=== PATIENT | female | born 1945 | race Caucasian/White ===

== ENCOUNTER 2018-07-12 18:29 | Emergency (ER) | payer OTHER, BC ==
[2018-07-12] MEDS ORDERED: NA CHLORIDE 0.9% 1,000 ML ONE ×2 (19:27→22:08)
[2018-07-12] MEDS ORDERED: ONDANSETRON 4 MG/2 ML VIAL ONE (19:27)
[2018-07-12 19:52] LABS: Absolute Lymphocytes (CBC) 1.2 K/uL (0.7-4.9); Absolute Monocytes 0.4 K/uL (0.1-1.3); Absolute Neutrophil 9.6 K/uL (1.8-8.0); Basophils % 0.3 % (0-1.3); Eosinophils % 0.3 % (0-4.4); Hematocrit 36.1 % (36.0-45.0); Lymphocytes % 10.7 % (15.3-44.8); MCV 87.2 fL (80-100); MPV 8.3 fL (7.6-11.3); Monocytes % 3.7 % (3.3-12.3); RBC Red Blood Cell Count 4.14 M/uL (3.86-4.86)
--- NOTE | 2018-07-12 19:57 | RAD REPORT ---
EXAM DESCRIPTION: RAD - Chest Single View - 07/12/2018 7:45 pm CLINICAL HISTORY: COUGH Chest pain. COMPARISON: Chest Pa And Lat (2 Views) dated 10/24/2016 FINDINGS: Portable technique limits examination quality. The lungs are grossly clear. The heart is upper limit normal in size. No displaced fractures. IMPRESSION: No acute intrathoracic process suspected.
[2018-07-12 19:59] LABS: Protime INR 1.05
[2018-07-12 20:15] LABS: ALT/SGPT 25 U/L (12-78); AST/SGOT 23 U/L (15-37); Albumin 3.7 g/dL (3.4-5.0); Alkaline Phosphatase 116 U/L (45-117); BUN Blood Urea Nitrogen 31 mg/dL (7-18); Bicarbonate 23 mmol/L (21-32); Bilirubin Direct 0.1 mg/dL (0-0.2); Bilirubin Total 0.3 mg/dL (0.2-1.0); Glucose Level 126 mg/dL (74-106); Lipase 178 U/L (73-393); Magnesium 2.2 mg/dL (1.8-2.4); NT PRO-BNP 142 pg/mL (<125); Protein, Total 7.8 g/dL (6.4-8.2); Sodium Level 141 mmol/L (136-145); Troponin (Emerg Dept Use Only) < 0.02 ng/mL (0.0-0.045)
[2018-07-12] MEDS ORDERED: MECLIZINE HCL 12.5 MG TAB ONE ×2 (21:01→22:27)
--- NOTE | 2018-07-12 21:04 | RAD REPORT ---
EXAM DESCRIPTION: - CP - 07/12/2018 8:53 pm CLINICAL HISTORY: DIZZINESS Syncope, CVA COMPARISON: None TECHNIQUE: Real-time sonographic evaluation of both carotid systems was performed. Doppler interroga tion was performed with waveform tracing bilaterally. FINDINGS: Normal high resistance waveforms are noted in both external carotid arteries. The common c arotid arteries and internal carotid arteries show normal low resistance waveforms. No significant plaque formation is seen. Peak systolic and end diastolic velocity values and the ICA/ CCA ratios are in the non-hemodynamically significant range. Antegrade flow seen in both vertebral arteries. IMPRESSION: No significant atherosclerotic changes noted. No evidence of a hemodynamically significant stenosis.
--- NOTE | 2018-07-12 21:10 | RAD REPORT ---
EXAM DESCRIPTION: CT - Head Brain Wo Cont - 07/12/2018 8:57 pm CLINICAL HISTORY: Dizziness, syncope Drowsiness COMPARISON: No comparisons TECHNIQUE: All CT scans are performed using dose optimization technique as appropriate and may inclu de automated exposure control or mA/KV adjustment according to patient size. FINDINGS: No intracranial hemorrhage, hydrocephalus or extra-axial fluid collection.No areas of brai n edema or evidence of midline shift. The paranasal sinuses and mastoids are clear. The calvarium is intact. IMPRESSION: No acute intracranial abnormality.
--- NOTE | 2018-07-12 21:53 | RAD REPORT ---
EXAM DESCRIPTION: CT - Stone Protocol - 07/12/2018 9:34 pm CLINICAL HISTORY: Flank pain. ABD PAIN COMPARISON: No comparisons TECHNIQUE: Axial images were obtained without oral or IV contrast. Lack of contrast limits solid org an and vascular assessment. The [id number] spans the entirety of the system partially obscuring uppermost abdomen and lung bases. Coronal reformatted images were obtained and reviewed. All CT scans are performed using dose optimization technique as appropriate and may include automated exposure control or mA/KV adjustment according to patient size. FINDINGS: The lower lung euceda are clear. Moderate hiatal hernia. Imaged portions of the liver and spleen show no suspicious findings on non-contrast imaging. The panc reas and adrenal glands are normal. No pathologic lymphadenopathy in the abdomen or pelvis. No urinary tract stones or obstructive uropathy. No bowel obstruction, free air, free fluid or abscess. Normal appendix noted.Sigmoid diverticulosis c vince without diverticulitis. Moderate lower lumbar degenerative changes. Small fat containing umbilical hernia. IMPRESSION: No urinary tract stones or obstructive uropathy. Sigmoid diverticulosis coli without diverticulitis.
--- NOTE | 2018-07-12 22:10 | ER ---
Nurse's Notes [facility] Name: Kalli Gipson Age: 72 yrs Sex: Female : 1945 Arrival Date: 07/12/2018 Time: 18:31 Bed 7 Private MD: Diagnosis: Vomiting;Dizziness and giddiness;Vertiginous syndromes in diseases classified elsewhere, unspecified ear;Unspecified kidney failure Presentation: 07/12 18:32 Presenting complaint: EMS states: Dizziness, nausea and vomiting x 2 hours. Hx of jl7 vertigo, took vertigo medication but threw it right back up. Transition of care: patient was not received from another setting of care. Onset of symptoms was July 12, 2018 at 16:30. Risk Assessment: Do you want to hurt yourself or someone else? Patient reports no desire to harm self or others. Initial Sepsis Screen: Does the patient meet any 2 criteria? No. Patient's initial sepsis screen is negative. Does the patient have a suspected source of infection? No. Patient's initial sepsis screen is negative. Care prior to arrival: Medication(s) given: 300 cc of Lactated Ringers IV initiated. 20 GA, in the left forearm. 18:32 Method Of Arrival: EMS: [facility] jl7 18:32 Acuity: JOSUE 3 jl7 Triage Assessment: 18:35 General: Appears uncomfortable, Behavior is calm, cooperative, appropriate for age. jl7 Pain: Denies pain. EENT: No signs and/or symptoms were reported regarding the EENT system. Neuro: Level of Consciousness is awake, alert, obeys commands, Oriented to person, place, time, situation, Speech is normal, Facial symmetry appears normal, Reports dizziness, since 1630. Cardiovascular: Patient's skin is warm and dry. Respiratory: Airway is patent Respiratory effort is even, unlabored, Respiratory pattern is regular, symmetrical. GI: Abdomen is round non-distended, Reports nausea, vomiting, since 1630. : No signs and/or symptoms were reported regarding the genitourinary system. Derm: Skin is pink, warm \\T\\ dry. Musculoskeletal: No signs and/or symptoms reported regarding the musculoskeletal system. Historical: - Allergies: 18:35 No Known Allergies; jl7 - PMHx: 18:35 Hypertension; vertigo; jl7 - Immunization history:: Adult Immunizations not up to date. - Social history:: Smoking status: Patient/guardian denies using tobacco. - Ebola Screening: : No symptoms or risks identified at this time. Screenin:37 Abuse screen: Denies threats or abuse. Denies injuries from another. Nutritional jl7 screening: No deficits noted. Tuberculosis screening: No symptoms or risk factors identified. Fall Risk IV access (20 points). Total Cantu Fall Scale indicates No Risk (0-24 pts). Assessment: 18:37 General: See triage assessment. jl7 19:16 Neuro: Level of Consciousness is awake, alert, obeys commands, Reports dizziness. lp1 Cardiovascular: Patient's skin is warm and dry. Respiratory: Respiratory effort is even, unlabored. GI: Pt is actively vomiting clear fluid. : No signs and/or symptoms were reported regarding the genitourinary system. Derm: Skin is pink, warm \\T\\ dry. 21:04 Reassessment: PT RETURNED FROM U/S AND CT. bp 22:12 Reassessment: Patient denies any nausea at this time; States "I still feel dizzy lp1 anytime I move" Patient states feeling better. 22:13 Reassessment: Patient is alert, oriented x 3, equal unlabored respirations, skin lp1 warm/dry/pink. General: Appears in no apparent distress. 22:45 Reassessment: Dr. Holcomb at bedside to discuss results with patient. lp1 Vital Signs: 18:35 BP 171 / 85; Pulse 65; Resp 16 S; Temp 97.5(O); Pulse Ox 100% on R/A; Weight 70.31 kg jl7 (R); Pain 0/10; 19:20 BP 154 / 91; Pulse 73; Resp 16; Pulse Ox 98% on R/A; lp1 21:04 BP 164 / 94; Pulse 74; Resp 16; Pulse Ox 98% ; bp 22:00 BP 142 / 81; Pulse 65; Resp 16; Pulse Ox 97% on R/A; lp1 ED Course: 18:31 Patient arrived in ED. jl7 18:34 Triage completed. jl7 18:35 Arm band placed on right wrist. jl7 18:37 Patient has correct armband on for positive identification. Bed in low position. Call [facility] light in reach. Side rails up X 1. Pulse ox on. NIBP on. Warm blanket given. 18:37 Maintain EMS IV. Dressing intact. Good blood return noted. Site clean \\T\\ dry. Gauge \\T\\ jl 7 site: 20 left FA. 18:54 EKG done, by ED staff, reviewed by Keon Gagnon MD. dh3 19:04 Julianne Amaro, LEANDRA is Primary Nurse. lp1 19:05 Latrell Holcomb MD is Attending Physician. lisette 19:43 X-ray completed. Portable x-ray completed in exam room. Patient tolerated procedure ag1 well. 19:45 XRAY Chest (1 view) In Process Unspecified. EDMS 20:53 US Carotid Artery Bilateral In Process Unspecified. EDMS 20:[address] via wheelchair. cy 20:57 CT completed. Patient tolerated procedure well. Patient moved back from CT. nj 20:57 CT Head Brain wo Cont In Process Unspecified. EDMS 21:34 CT Stone Protocol In Process Unspecified. EDMS 22:10 Elvia Carrasco MD is Referral Physician. lisette 22:14 No provider procedures requiring assistance completed. lp1 23:12 IV discontinued, No redness/swelling at site. Pressure dressing applied. lp1 Administered Medications: 19:28 Drug: NS 0.9% 1000 ml Route: IV; Rate: 1 bolus; Site: left forearm; lp1 20:30 Follow up: IV Status: Completed infusion; IV Intake: 1000ml lp1 19:29 Drug: Zofran 4 mg Route: IVP; Site: left forearm; lp1 20:30 Follow up: Response: Nausea is decreased lp1 21:04 Drug: Meclizine 25 mg Route: PO; bp 21:30 Follow up: Response: No adverse reaction lp1 22:11 Drug: NS 0.9% 1000 ml Route: IV; Rate: 125 ml/hr; Site: left forearm; lp1 22:47 Follow up: IV Status: IV converted to saline lock lp1 22:29 Drug: Meclizine 25 mg Route: PO; lp1 22:48 Follow up: Response: Medication administered at discharge. lp1 Intake: 20:30 IV: 1000ml; Total: 1000ml. lp1 Outcome: 22:10 Discharge ordered by . lisette 23:00 Discharged to home via wheelchair, with friend. lp1 23:00 Condition: good 23:00 Discharge instructions given to patient, Instructed on discharge instructions, follow up and referral plans. medication usage, Demonstrated understanding of instructions, follow-up care, medications, Prescriptions given X 2. 23:00 Patient left the ED. lp1 Signatures: Dispatcher [employer] EDMS Latrell Holcomb MD MD cha Pena, Laura, RN RN lp1 Ashley Red ag1 Simba Bojorquez Jahala, RN RN 7 Sangeeta Sofia 3 Cheko Wallis RN RN [employer]: (The following items were deleted from the chart) 22:13 22:12 Reassessment: Patient denies any nausea at this time; States "I still feel dizzy lp1 anytime I move" Patient states feeling better. lp1 23:13 23:13 Patient left the ED. lp1 lp1
--- NOTE | 2018-07-12 22:10 | EDPHYS ---
Physician Documentation [facility] Name: Kalli Gipson Age: 72 yrs Sex: Female : 1945 Arrival Date: 07/12/2018 Time: 18:31 Bed 7 Private MD: ED Physician Latrell Holcomb HPI: 07/12 19:36 This 72 yrs old Female presents to ER via EMS with complaints of Vertigo, lisette Nausea/Vomiting. 19:36 The patient presents to the emergency department with nausea, vomiting, that is lisette intermittent. Onset: The symptoms/episode began/occurred just prior to arrival, today. Possible causes: unknown. The symptoms are aggravated by movement, The symptoms are alleviated by remaining still. Associated signs and symptoms: The patient has no apparent associated signs or symptoms. Severity of symptoms: At their worst the symptoms were mild in the emergency department the symptoms are unchanged. The patient has not experienced similar symptoms in the past. Historical: - Allergies: 18:35 No Known Allergies; jl7 - PMHx: 18:35 Hypertension; vertigo; jl7 - Immunization history:: Adult Immunizations not up to date. - Social history:: Smoking status: Patient/guardian denies using tobacco. - Ebola Screening: : No symptoms or risks identified at this time. ROS: 19:37 Constitutional: Negative for fever, chills, and weight loss, Eyes: Negative for injury, lisette pain, redness, and discharge, ENT: Negative for injury, pain, and discharge, Neck: Negative for injury, pain, and swelling, Cardiovascular: Negative for chest pain, palpitations, and edema, Respiratory: Negative for shortness of breath, cough, wheezing, and pleuritic chest pain, Abdomen/GI: Negative for abdominal pain, nausea, vomiting, diarrhea, and constipation, Back: Negative for injury and pain, : Negative for injury, bleeding, discharge, and swelling, MS/Extremity: Negative for injury and deformity, Skin: Negative for injury, rash, and discoloration, Psych: Negative for depression, anxiety, suicide ideation, homicidal ideation, and hallucinations, Allergy/Immunology: Negative for hives, rash, and allergies, Endocrine: Negative for neck swelling, polydipsia, polyuria, polyphagia, and marked weight changes, Hematologic/Lymphatic: Negative for swollen nodes, abnormal bleeding, and unusual bruising. 19:37 Neuro: Positive for dizziness. Exam: 19:37 Constitutional: This is a well developed, well nourished patient who is awake, alert, lisette and in no acute distress. Head/Face: Normocephalic, atraumatic. Eyes: Pupils equal round and reactive to light, extra-ocular motions intact. Lids and lashes normal. Conjunctiva and sclera are non-icteric and not injected. Cornea within normal limits. Periorbital areas with no swelling, redness, or edema. ENT: Nares patent. No nasal discharge, no septal abnormalities noted. Tympanic membranes are normal and external auditory canals are clear. Oropharynx with no redness, swelling, or masses, exudates, or evidence of obstruction, uvula midline. Mucous membranes moist. Neck: Trachea midline, no thyromegaly or masses palpated, and no cervical lymphadenopathy. Supple, full range of motion without nuchal rigidity, or vertebral point tenderness. No Meningismus. Chest/axilla: Normal chest wall appearance and motion. Nontender with no deformity. No lesions are appreciated. Cardiovascular: Regular rate and rhythm with a normal S1 and S2. No gallops, murmurs, or rubs. Normal PMI, no JVD. No pulse deficits. Respiratory: Lungs have equal breath sounds bilaterally, clear to auscultation and percussion. No rales, rhonchi or wheezes noted. No increased work of breathing, no retractions or nasal flaring. Abdomen/GI: Soft, non-tender, with normal bowel sounds. No distension or tympany. No guarding or rebound. No evidence of tenderness throughout. Back: No spinal tenderness. No costovertebral tenderness. Full range of motion. Female : Normal external genitalia. Skin: Warm, dry with normal turgor. Normal color with no rashes, no lesions, and no evidence of cellulitis. MS/ Extremity: Pulses equal, no cyanosis. Neurovascular intact. Full, normal range of motion. Neuro: Awake and alert, GCS 15, oriented to person, place, time, and situation. Cranial nerves II-XII grossly intact. Motor strength 5/5 in all extremities. Sensory grossly intact. Cerebellar exam normal. Normal gait. Psych: Awake, alert, with orientation to person, place and time. Behavior, mood, and affect are within normal limits. Vital Signs: 18:35 BP 171 / 85; Pulse 65; Resp 16 S; Temp 97.5(O); Pulse Ox 100% on R/A; Weight 70.31 kg jl7 (R); Pain 0/10; 19:20 BP 154 / 91; Pulse 73; Resp 16; Pulse Ox 98% on R/A; lp1 21:04 BP 164 / 94; Pulse 74; Resp 16; Pulse Ox 98% ; bp 22:00 BP 142 / 81; Pulse 65; Resp 16; Pulse Ox 97% on R/A; lp1 MDM: 19:05 Patient medically screened. [facility] 19:37 Data reviewed: vital signs, nurses notes, lab test result(s), EKG, radiologic studies, [facility] CT scan, doppler, plain films. 07/12 19:17 Order name: Basic Metabolic Panel; Complete Time: 21:08 [facility] 07/12 19:17 Order name: CBC with Diff; Complete Time: 21:08 [facility] 07/12 19:17 Order name: LFT's; Complete Time: 21:08 [facility] 07/12 19:17 Order name: Magnesium; Complete Time: 21:08 [facility] 07/12 19:17 Order name: NT PRO-BNP; Complete Time: 21:08 [facility] 07/12 19:17 Order name: PT-INR; Complete Time: 21:08 [facility] 07/12 19:17 Order name: Troponin (emerg Dept Use Only); Complete Time: 21:08 [facility] 07/12 19:17 Order name: XRAY Chest (1 view); Complete Time: 21:08 [facility] 07/12 19:17 Order name: Lipase; Complete Time: 21:08 [facility] 07/12 19:36 Order name: CT Head Brain wo Cont; Complete Time: 21:13 [facility] 07/12 19:36 Order name: US Carotid Artery Bilateral; Complete Time: 21:08 [facility] 07/12 21:13 Order name: CT Stone Protocol; Complete Time: 22:09 [facility] 07/12 19:17 Order name: EKG; Complete Time: 19:38 [facility] 07/12 19:17 Order name: Cardiac monitoring; Complete Time: 19:19 [facility] 07/12 19:17 Order name: EKG - Nurse/Tech; Complete Time: 19:19 [facility] 07/12 19:17 Order name: IV Saline Lock; Complete Time: 19: [facility] 07/12 19:17 Order name: Labs collected and sent; Complete Time: 19: [facility] 07/12 19:17 Order name: O2 Per Protocol; Complete Time: [facility] 07/12 19:17 Order name: O2 Sat Monitoring; Complete Time: : [facility] Administered Medications: 19:28 Drug: NS 0.9% 1000 ml Route: IV; Rate: 1 bolus; Site: left forearm; lp1 20:30 Follow up: IV Status: Completed infusion; IV Intake: 1000ml lp1 19:29 Drug: Zofran 4 mg Route: IVP; Site: left forearm; lp1 20:30 Follow up: Response: Nausea is decreased lp1 21:04 Drug: Meclizine 25 mg Route: PO; bp 21:30 Follow up: Response: No adverse reaction lp1 22:11 Drug: NS 0.9% 1000 ml Route: IV; Rate: 125 ml/hr; Site: left forearm; lp1 22:47 Follow up: IV Status: IV converted to saline lock lp1 22:29 Drug: Meclizine 25 mg Route: PO; lp1 22:48 Follow up: Response: Medication administered at discharge. lp1 Disposition: 07/12/18 22:10 Discharged to Home. Impression: Vomiting, Dizziness and giddiness, Vertiginous syndromes in diseases classified elsewhere, unspecified ear, Unspecified kidney failure. - Condition is Stable. - Discharge Instructions: Dizziness, Nausea and Vomiting, Adult, Nausea and Vomiting, Adult, [id number], Vertigo, [id number], Aspirin and Your Heart, Chronic Kidney Disease, Adult, [id number]-[id number], Dizziness, [id number]-[id number]. - Prescriptions for Meclizine 25 mg Oral Tablet - take 1 tablet by ORAL route every 8 hours As needed; 30 tablet. Zofran 4 mg Oral Tablet - take 1 tablet by ORAL route every 12 hours As needed; 20 tablet. - Medication Reconciliation Form, Thank You Letter, Antibiotic Education, Prescription Opioid Use form. - Follow up: Private Physician; When: 2 - 3 days; Reason: Recheck today's complaints, Continuance of care, Re-evaluation by your physician. Follow up: Elvia Carrasco; When: 2 - 3 days; Reason: Recheck today's complaints, Re-evaluation by your physician. - Problem is new. - Symptoms have improved. Signatures: Dispatcher [employer] EDMS Latrell Holcomb MD MD cha Pena, Laura, RN RN lp1 Sylvia Casey, RN RN jl7 Cheko Wallis RN RN bp Corrections: (The following items were deleted from the chart) 23:13 22:10 07/12/2018 22:10 Discharged to Home. Impression: Vomiting; Dizziness and lp1 giddiness; Vertiginous syndromes in diseases classified elsewhere, unspecified ear; Unspecified kidney failure. Condition is Stable. Discharge Instructions: Dizziness, Nausea and Vomiting, Adult, Nausea and Vomiting, Adult, Navq-[id number], Vertigo, [id number], Aspirin and Your Heart, Dizziness, Dplv-[id number]-Jvht, Chronic Kidney Disease, Adult, Ypqc-[id number]. Prescriptions for Meclizine 25 mg Oral Tablet - take 1 tablet by ORAL route every 8 hours As needed; 30 tablet, Zofran 4 mg Oral Tablet - take 1 tablet by ORAL route every 12 hours As needed; 20 tablet. and Forms are Medication Reconciliation Form, Thank You Letter, Antibiotic Education, Prescription Opioid Use. Follow up: Private Physician; When: 2 - 3 days; Reason: Recheck today's complaints, Continuance of care, Re-evaluation by your physician. Follow up: Elvia Carrasco; When: 2 - 3 days; Reason: Recheck today's complaints, Re-evaluation by your physician. Problem is new. Symptoms have improved. lisette
[2018-07-12 23:54] VITALS: TEMP 97.5
[2018-07-12 23:57] VITALS: BP 142/81; O2SAT 97
== END 2018-07-12 23:13 | disposition home or self-care (01) ==
LOC: ER 18:29
DX: R42 Dizziness and giddiness (principal); H82.9 Vertiginous syndromes in diseases classified elsewhere, unspecified ear; N19 Unspecified kidney failure; I10 Essential (primary) hypertension
CPT/HCPCS: 36415; 70450; 71045; 74176; 76377; 80048; 80076; 83690; 83735; 83880; 84484; 85025; 85610; 93880; J2405; J7030 ×2; 93005

== ENCOUNTER 2023-01-09 11:55 | Emergency (ER) | payer OTHER, BC ==
--- OUTSIDE RECORDS SUMMARY | 2023-01-09 11:59 | XMS REPORT | Continuity of Care Document ---
:1945 Author Organization [facility] Address [address] [place] [address] [place] [id number] Care Team Providers Name Role Phone Perla Arceo Attending Clinician Unavailable Donald Martin Attending Clinician Unavailable Greg Hendrickson Attending Clinician Unavailable Wei Vail Attending Clinician Unavailable PERLA ARCEO Admitting Clinician Unavailable Donald Martin Admitting Clinician Unavailable Physician, No Primary or Family Admitting Clinician Unavaila ble Payers Payer Name Policy Type Policy Number Effective Date Expiration Date S ource MEDICARE MB [id number] 2010 [facility] NOVITAS 00:00:00 - [facility] Blue Cross Blue C1 [id number] 2021 [facility] 0 00:00:00 - [facility] Problems Condition Condition Condition Status Onset Resolution Last Treating Co mments Source Name Details Category Date Date Treatment Clinician Date [id number] Age-relate Problem Com mon d [facility] osteoporos - [facility] is without [facility] pathologic Medica l [facility] fracture Gastroesop Gastroesop Problem C ommon hageal hageal [facility] reflux reflux - [facility] disease disease, esophagiti [facility] s presence Medica l not Center specified [id number] Essential Problem Comm on (primary) [facility] hypertensi - [facility] on [facility] [id number] Cervical Problem Common osteophyte [facility] - [facility] [id number] Neck pain Problem Comm on [facility] - [facility] [id number] Osteoarthr Problem Co mmon 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 - [facility] knees, St unspecie [facility] osteoarthr Center itis type [id number] 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, - [facility] unspecifie [facility] [id number] +5th digit Problem Co mmon eff [facility] 07/24/20*St - [facility] [address] [facility] kidney Medical disease Center [id number] Asymptomat Problem Co mmon ic [facility] postsurgic - [facility] al [facility] Allergies, Adverse Reactions, Alerts Allergy Allergy Status Severity Reaction(s) Onset Inactive Treating Comm ents Source Name Type Date Date Clinician Sulfa DA Active [place] [facility] (Sulf[place] 7- [place] mide 00:00: Orthope Antibiot 00 dic ics) [facility] [place] [facility] ([place] 7 [place] 00:[place]: Orthope Antibiot 00 dic ics) [facility] [place] [facility] (Sulfona 4 [place] [facility] 00:00: Green Antibiot 00 Regiona ics) [facility] Sulfa DA Active [place] [facility] (Sulfona 4- Clear mide 00:00: Green Antibiot 00 Regiona ics) [facility] lisinopr lisinopr Active unlisted Comm on il il [facility] - [facility] sulfamet sulfamet Active itching Commo n hoxazole hoxazole Spirit / / - [facility] trimetho trimetho [facility] Social History Social Habit Start Date Stop Date Quantity Comments Source History of Tobacco Use Co mmon [facility] Sex Assigned At Com [facility] Smoking Status Start Date Stop Date Source Never Smoker Common [facility] Medications Ordered Filled Start Stop Current Ordering Indication Dosage Frequency Signature Comments Components Source Medication Medication Date Date Medication? Clinician (SIG) Name Name Alendronate Alendronate 2022- No Alendronat Sodium 70 Sodium 70 03-25 e Sodium MG MG 00:00: 00:00 70 MG 00 :00 Alendronate Alendronate 2022- No Alendronat Sodium 70 Sodium 70 03-25 e Sodium MG MG 00:00: 00:00 70 MG 00 :00 Alendronate Alendronate 2022- No Alendronat Sodium 70 Sodium 70 03-25 e Sodium MG MG 00:00: 00:00 70 MG 00 :00 Alendronate Alendronate 2022- No Alendronat Sodium 70 Sodium 70 03-25 e Sodium MG MG 00:00: 00:00 70 MG 00 :00 Alendronate Alendronate 2022- No Alendronat Sodium 70 Sodium 70 03-25 e Sodium MG MG 00:00: 00:00 70 MG 00 :00 Alendronate Alendronate 2022- No Alendronat Sodium 70 Sodium 70 03-25 e Sodium MG MG 00:00: 00:00 70 MG 00 :00 Atorvastati Atorvastati No 1{table QD Atorvastat n Calcium n Calcium 9-27 t} in Calcium 20 MG 20 MG 00:00: 20 MG 00 Atorvastati Atorvastati No 1{table QD Atorvastat n Calcium n Calcium 9-27 t} in Calcium 20 MG 20 MG 00:00: 20 MG 00 Atorvastati Atorvastati No 1{table QD Atorvastat n Calcium n Calcium 9-27 t} in Calcium 20 MG 20 MG 00:00: 20 MG 00 Atorvastati Atorvastati No 1{table QD Atorvastat n Calcium n Calcium 9-27 t} in Calcium 20 MG 20 MG 00:00: 20 MG 00 Atorvastati Atorvastati No 1{table QD Atorvastat n Calcium n Calcium 9-27 t} in Calcium 20 MG 20 MG 00:00: 20 MG Atorvastati Atorvastati No 1{table QD Atorvastat n Calcium n Calcium 9-27 t} in Calcium 20 MG 20 MG 00:00: 20 MG Atorvastati Atorvastati No 1{table QD Atorvastat n Calcium n Calcium 9-27 t} in Calcium 20 MG 20 MG 00:00: 20 MG Atorvastati Atorvastati No 1{table QD Atorvastat n Calcium n Calcium 9-27 t} in Calcium 20 MG 20 MG 00:00: 20 MG Atorvastati Atorvastati No 1{table QD Atorvastat n Calcium n Calcium 9-27 t} in Calcium 20 MG 20 MG 00:00: 20 MG Atorvastati Atorvastati No 1{table QD Atorvastat n Calcium n Calcium 9-27 t} in Calcium 20 MG 20 MG 00:00: 20 MG 00 Hyalgan 20 Hyalgan 20 2020-0 No 2mL C ommon mg mg 11-15 Spirit 00:00: - [facility] Hyalgan 20 Hyalgan 20 2020-0 No 2mL C ommon mg mg 11-15 [facility] 00:00: - [facility] Hyalgan 20 Hyalgan 20 2020-0 No 2mL C ommon mg mg 11-15 [facility] 00:00: - [facility] Hyalgan 20 Hyalgan 20 2020-0 No 2mL C ommon mg mg 11-15 [facility] 00:00: - [facility] Hyalgan 20 Hyalgan 20 2020-0 No 2mL C ommon mg mg 11-15 [facility] 00:00: - [facility] Hyalgan 20 Hyalgan 20 2020-0 No 2mL C ommon mg mg 11-15 [facility] 00:00: - [facility] Hyalgan 20 Hyalgan 20 2020-0 No 2mL C ommon mg mg 11-15 [facility] 00:00: - [facility] Hyalgan 20 Hyalgan 20 2020-0 No 2mL C ommon mg mg 11-15 [facility] 00:00: - [facility] Hyalgan 20 Hyalgan 20 2020-0 No 2mL C ommon mg mg 11-15 [facility] 00:00: - [facility] Hyalgan 20 Hyalgan 20 2020-0 No 2mL C ommon mg mg 11-15 [facility] 00:00: - [facility] Hyalgan 20 Hyalgan 20 2020-0 No 2mL C ommon mg mg 11-15 [facility] 00:00: - [facility] Hyalgan 20 Hyalgan 20 2020-0 No 2mL C ommon mg mg 11-15 [facility] 00:00: - [facility] Hyalgan 20 Hyalgan 20 2020-0 No 2mL C ommon mg mg 11-15 [facility] 00:00: - [facility] Hyalgan 20 Hyalgan 20 2020-0 No 2mL C ommon mg mg 11-15 [facility] 00:00: - [facility] Hyalgan 20 Hyalgan 20 2020-0 No 2mL C ommon mg mg 11-15 [facility] 00:00: - [facility] Hyalgan 20 Hyalgan 20 2020-0 No 2mL C ommon mg mg 11-15 [facility] 00:00: - [facility] Hyalgan 20 Hyalgan 20 2020-0 No 2mL C ommon mg mg 11-08 [facility] 00:00: - [facility] Hyalgan 20 Hyalgan 20 2020-0 No 2mg C ommon mg mg 11-08 [facility] 00:00: - [facility] Hyalgan 20 Hyalgan 20 2020-0 No 2mL C ommon mg mg 11-08 [facility] 00:00: - [facility] Hyalgan 20 Hyalgan 20 2020-0 No 2mg C ommon mg mg 11-08 [facility] 00:00: - [facility] Hyalgan 20 Hyalgan 20 2020-0 No 2mL C ommon mg mg 11-08 [facility] 00:00: - [facility] Hyalgan 20 Hyalgan 20 2020-0 No 2mg C ommon mg mg 16 [facility] 00:00: - [facility] Hyalgan 20 Hyalgan 20 2020-0 No 2mL C ommon mg mg 11-08 [facility] 00:00: - [facility] Hyalgan 20 Hyalgan 20 2020-0 No 2mg C ommon mg mg 11-08 [facility] 00:00: - [facility] Hyalgan 20 Hyalgan 20 2020-0 No 2mL C ommon mg mg 11-08 [facility] 00:00: - [facility] Hyalgan 20 Hyalgan 20 2020-0 No 2mg C ommon mg mg 11-08 [facility] 00:00: - [facility] Hyalgan 20 Hyalgan 20 2020-0 No 2mL C ommon mg mg 11-08 [facility] 00:00: - [facility] Hyalgan 20 Hyalgan 20 2020-0 No 2mg C ommon mg mg 11-08 [facility] 00:00: - [facility] Hyalgan 20 Hyalgan 20 2020-0 No 2mL C ommon mg mg 11-08 [facility] 00:00: - [facility] Hyalgan 20 Hyalgan 20 2020-0 No 2mg C ommon mg mg 11-08 [facility] 00:00: - [facility] Hyalgan 20 Hyalgan 20 2020-0 No 2mL C ommon mg mg 11-08 [facility] 00:00: - [facility] Hyalgan 20 Hyalgan 20 2020-0 No 2mg C ommon mg mg 11-08 [facility] 00:00: - [facility] Hyalgan 20 Hyalgan 20 2020-0 No 2mL C ommon mg mg 10-31 [facility] 00:00: - [facility] Hyalgan 20 Hyalgan 20 2020-0 No 2mL C ommon mg mg 10-31 [facility] 00:00: - [facility] Hyalgan 20 Hyalgan 20 2020-0 No 2mL C ommon mg mg 10-31 [facility] 00:00: - [facility] Hyalgan 20 Hyalgan 20 2020-0 No 2mL C ommon mg mg 10-31 [facility] 00:00: - [facility] Hyalgan 20 Hyalgan 20 2020-0 No 2mL C ommon mg mg 10-31 [facility] 00:00: - [facility] Hyalgan 20 Hyalgan 20 2020-0 No 2mL C ommon mg mg 10-31 [facility] 00:00: - [facility] Hyalgan 20 Hyalgan 20 2020-0 No 2mL C ommon mg mg 10-31 [facility] 00:00: - [facility] Hyalgan 20 Hyalgan 20 2020-0 No 2mL C ommon mg mg 10-31 [facility] 00:00: - [facility] Hyalgan 20 Hyalgan 20 2020-0 No 2mL C ommon mg mg 10-31 [facility] 00:00: - [facility] Hyalgan 20 Hyalgan 20 2020-0 No 2mL C ommon mg mg 10-31 [facility] 00:00: - [facility] Hyalgan 20 Hyalgan 20 2020-0 No 2mL C ommon mg mg 10-31 [facility] 00:00: - [facility] Hyalgan 20 Hyalgan 20 2020-0 No 2mL C ommon mg mg 10-31 [facility] 00:00: - [facility] Hyalgan 20 Hyalgan 20 2020-0 No 2mL C ommon mg mg 10-31 [facility] 00:00: - [facility] Hyalgan 20 Hyalgan 20 2020-0 No 2mL C ommon mg mg 10-31 [facility] 00:00: - [facility] Hyalgan 20 Hyalgan 20 2020-0 No 2mL C ommon mg mg 10-31 [facility] 00:00: - [facility] Hyalgan 20 Hyalgan 20 2020-0 No 2mL C ommon mg mg 10-31 [facility] 00:00: - [facility] Kenalog Kenalog 2019-1 No 1mL Common (Triamcinol (Triamcinol 0-17 S pirit one) one) 00:00: - [facility] Kenalog Kenalog 2019-1 No 1mL [facility] (Triamcinol (Triamcinol 0-17 S pirit one) one) 00:00: - [facility] LIDOCAINE LIDOCAINE 2019-1 No 4mL Com mon HCL 10MG/ML HCL 10MG/ML 0-17 S pirit 00:00: - [facility] LIDOCAINE LIDOCAINE 2019-1 No 4mL Com mon HCL 10MG/ML HCL 10MG/ML 0-17 S pirit 00:00: - [facility] Kenalog Kenalog 2019-1 No 1mL Common (Triamcinol (Triamcinol 0-17 S pirit one) one) 00:00: - [facility] 00 [facility] Kenalog Kenalog 2019-1 No 1mL [facility] (Triamcinol (Triamcinol 0-17 S pirit one) one) 00:00: - [facility] 00 [facility] LIDOCAINE LIDOCAINE 2019-1 No 4mL Com mon HCL 10MG/ML HCL 10MG/ML 0-17 S pirit 00:00: - [facility] 00 [facility] LIDOCAINE LIDOCAINE 2019-1 No 4mL Com mon HCL 10MG/ML HCL 10MG/ML 0-17 S pirit 00:00: - [facility] 00 [facility] Kenalog Kenalog 2019-1 No 1mL Common (Triamcinol (Triamcinol 0-17 S pirit one) one) 00:00: - [facility] 00 [facility] Kenalog Kenalog 2019-1 No 1mL [facility] (Triamcinol (Triamcinol 0-17 S pirit one) one) 00:00: - [facility] 00 [facility] LIDOCAINE LIDOCAINE 2019-1 No 4mL Com mon HCL 10MG/ML HCL 10MG/ML 0-17 S pirit 00:00: - [facility] 00 [facility] LIDOCAINE LIDOCAINE 2019-1 No 4mL Com mon HCL 10MG/ML HCL 10MG/ML 0-17 S pirit 00:00: - [facility] 00 [facility] Kenalog Kenalog 2019-1 No 1mL Common (Triamcinol (Triamcinol 0-17 S pirit one) one) 00:00: - [facility] 00 [facility] Kenalog Kenalog 2019-1 No 1mL [facility] (Triamcinol (Triamcinol 0-17 S pirit one) one) 00:00: - [facility] 00 [facility] LIDOCAINE LIDOCAINE 2019-1 No 4mL Com mon HCL 10MG/ML HCL 10MG/ML 0-17 S pirit 00:00: - [facility] 00 [facility] LIDOCAINE LIDOCAINE 2019-1 No 4mL Com mon HCL 10MG/ML HCL 10MG/ML 0-17 S pirit 00:00: - [facility] 00 [facility] Kenalog Kenalog 2019-1 No 1mL [facility] (Triamcinol (Triamcinol 0-17 S pirit one) one) 00:00: - [facility] 00 [facility] Raymonalog Kenalog 2019-1 No 1mL Common (Triamcinol (Triamcinol 0-17 S pirit one) one) 00:00: - [facility] 00 [facility] LIDOCAINE LIDOCAINE 2019-1 No 4mL Com mon HCL 10MG/ML HCL 10MG/ML 0-17 S pirit 00:00: - [facility] 00 [facility] LIDOCAINE LIDOCAINE 2019-1 No 4mL Com mon HCL 10MG/ML HCL 10MG/ML 0-17 S pirit 00:00: - [facility] 00 [facility] Puneet Kenalog 2019-1 No 1mL Common (Triamcinol (Triamcinol 0-17 S pirit one) one) 00:00: - [facility] 00 [facility] [place] Kenalog 2019-1 No 1mL [facility] (Triamcinol (Triamcinol 0-17 S pirit one) one) 00:00: - [facility] 00 [facility] LIDOCAINE LIDOCAINE 2019-1 No 4mL Com mon HCL 10MG/ML HCL 10MG/ML 0-17 S pirit 00:00: - [facility] 00 [facility] LIDOCAINE LIDOCAINE 2019-1 No 4mL Com mon HCL 10MG/ML HCL 10MG/ML 0-17 S pirit 00:00: - [facility] 00 [facility] [place] Kenalog 2019-1 No 1mL [facility] (Triamcinol (Triamcinol 0-17 S pirit one) one) 00:00: - [facility] 00 [facility] [place] Kenalog 2019-1 No 1mL [facility] (Triamcinol (Triamcinol 0-17 S pirit one) one) 00:00: - [facility] 00 [facility] LIDOCAINE LIDOCAINE 2019-1 No 4mL Com mon HCL 10MG/ML HCL 10MG/ML 0-17 S pirit 00:00: - [facility] 00 [facility] LIDOCAINE LIDOCAINE 2019-1 No 4mL Com mon HCL 10MG/ML HCL 10MG/ML 0-17 S pirit 00:00: - [facility] 00 [facility] Raymonalog Kenalog 2019-1 No 1mL Common (Triamcinol (Triamcinol 0-17 S pirit one) one) 00:00: - [facility] Kenalog Kenalog 2019- No 1mL [facility] (Triamcinol (Triamcinol 0-17 S pirit one) one) 00:00: - [facility] LIDOCAINE LIDOCAINE 2018- No 4mL Com mon HCL 10MG/ML HCL 10MG/ML 0-17 S pirit 00:00: - [facility] LIDOCAINE LIDOCAINE 2018- No 4mL Com mon HCL 10MG/ML HCL 10MG/ML 0-17 S pirit 00:00: - [facility] Famotidine Famotidine Yes Perla 1 tablet Common [place] as needed [facility] Carvedilol Carvedilol Yes Perla as Co mmon [place] directed [facility] Carvedilol Carvedilol No Carvedilol 6.25 MG 6.25 MG 6.25 MG Famotidine Famotidine No 1{table QD Famotidine 20 MG 20 MG t_as_ne 20 MG eded} Famotidine Famotidine No 1{table QD Famotidine 20 MG 20 MG t_as_ne 20 MG eded} Carvedilol Carvedilol No Carvedilol 6.25 MG 6.25 MG 6.25 MG Carvedilol Carvedilol No Carvedilol 6.25 MG 6.25 MG 6.25 MG Famotidine Famotidine No 1{table QD Famotidine 20 MG 20 MG t_as_ne 20 MG eded} Carvedilol Carvedilol No Carvedilol 6.25 MG 6.25 MG 6.25 MG Famotidine Famotidine No 1{table QD Famotidine 20 MG 20 MG t_as_ne 20 MG eded} Carvedilol Carvedilol No Carvedilol 6.25 MG 6.25 MG 6.25 MG Famotidine Famotidine No 1{table QD Famotidine 20 MG 20 MG t_as_ne 20 MG eded} Famotidine Famotidine No Famotidine 20 mg 20 mg 20 mg Levocetiriz Levocetiriz No Levocetiri ine ine zine Dihydrochlo Dihydrochlo Dihydrochl ride 5 mg ride 5 mg oride 5 mg Carvedilol Carvedilol No Carvedilol 6.25 mg 6.25 mg 6.25 mg Famotidine Famotidine No QD Famotidine 20 mg 20 mg 20 mg Carvedilol Carvedilol No BID Carvedilol 6.25 mg 6.25 mg 6.25 mg Carvedilol Carvedilol No Carvedilol 6.25 MG 6.25 MG 6.25 MG Famotidine Famotidine No 1{table QD Famotidine 20 MG 20 MG t_as_ne 20 MG eded} Carvedilol Carvedilol No Carvedilol 6.25 MG 6.25 MG 6.25 MG Famotidine Famotidine No 1{table QD Famotidine 20 MG 20 MG t_as_ne 20 MG eded} Carvedilol Carvedilol No Carvedilol 6.25 MG 6.25 MG 6.25 MG Famotidine Famotidine No 1{table QD Famotidine 20 MG 20 MG t_as_ne 20 MG eded} Levocetiriz Levocetiriz 2022- No QD Levocetiri ine ine 04-04 zine Dihydrochlo Dihydrochlo 00:00 Dihydrochl ride 5 mg ride 5 mg :00 oride 5 mg Levocetiriz Levocetiriz 2021- No QD Levocetiri ine ine 06-25 zine Dihydrochlo Dihydrochlo 00:00 Dihydrochl ride 5 MG ride 5 MG :00 oride 5 MG Levocetiriz Levocetiriz 2021- No QD Levocetiri ine ine 06-25 zine Dihydrochlo Dihydrochlo 00:00 Dihydrochl ride 5 MG ride 5 MG :00 oride 5 MG Levocetiriz Levocetiriz 2021- No QD Levocetiri ine ine 06-25 zine Dihydrochlo Dihydrochlo 00:00 Dihydrochl ride 5 MG ride 5 MG :00 oride 5 MG Levocetiriz Levocetiriz 2021- No QD Levocetiri ine ine 06-25 zine Dihydrochlo Dihydrochlo 00:00 Dihydrochl ride 5 MG ride 5 MG :00 oride 5 MG Levocetiriz Levocetiriz 2021- No QD Levocetiri ine ine 06-25 zine Dihydrochlo Dihydrochlo 00:00 Dihydrochl ride 5 MG ride 5 MG :00 oride 5 MG Levocetiriz Levocetiriz QD Levocetiri ine ine 06-25 zine Dihydrochlo Dihydrochlo 00:00 Dihydrochl ride 5 MG ride 5 MG :00 oride 5 MG Levocetiriz Levocetiriz QD Levocetiri ine ine 06-25 zine Dihydrochlo Dihydrochlo 00:00 Dihydrochl ride 5 MG ride 5 MG :00 oride 5 MG Levocetiriz Levocetiriz QD Levocetiri ine ine 06-25 zine Dihydrochlo Dihydrochlo 00:00 Dihydrochl ride 5 MG ride 5 MG :00 oride 5 MG Levocetiriz Levocetiriz Perla take 1 Common ine ine 08-25 [place] tablet by [facility] Dihydrochlo Dihydrochlo 00:00 mouth - [facility] ride ride :[address] [facility] Immunizations Ordered Immunization Filled Immunization Date Status Commen ts Source Name Name Pneumovax (PPSV23) Pneumovax (PPSV23) 2022-01-08 Completed [facility] Pneumovax (PPSV23) Pneumovax (PPSV23) 2022-01-08 Completed [facility] 11:00:00 [facility] Pneumovax (PPSV23) Pneumovax (PPSV23) 2022-01-08 Completed [facility] 11:00:00 [facility] Pneumovax (PPSV23) Pneumovax (PPSV23) 2022-01-08 Completed [facility] 11:00:00 [facility] Pneumovax (PPSV23) Pneumovax (PPSV23) 2022-01-08 Completed [facility] 11:00:00 [facility] Pneumovax (PPSV23) Pneumovax (PPSV23) 2022-01-08 Completed [facility] 11:00:00 [facility] Pneumovax (PPSV23) Pneumovax (PPSV23) 2022-01-08 Completed [facility] 11:00:00 [facility] Pneumovax (PPSV23) Pneumovax (PPSV23) 2022-01-08 Completed [facility] 11:00:00 - [facility] FLUZONE HIGH DOSE FLUZONE HIGH DOSE 2020 Completed [facility] OVER 65 OVER 65 11:15:00 - [facility] FLUZONE HIGH DOSE FLUZONE HIGH DOSE 2020 Completed [facility] OVER 65 OVER 65 11:15:00 - [facility] FLUZONE HIGH DOSE FLUZONE HIGH DOSE 2020 Completed [facility] OVER 65 OVER 65 11:15:00 - [facility] FLUZONE HIGH DOSE FLUZONE HIGH DOSE 2020 Completed [facility] OVER 65 OVER 65 11:15:00 - [facility] FLUZONE HIGH DOSE FLUZONE HIGH DOSE 2020 Completed [facility] OVER 65 OVER 65 11:15:00 - [facility] FLUZONE HIGH DOSE FLUZONE HIGH DOSE 2020 Completed [facility] OVER 65 OVER 65 11:15:00 - [facility] FLUZONE HIGH DOSE FLUZONE HIGH DOSE 2020 Completed [facility] OVER 65 OVER 65 11:15:00 - [facility] FLUZONE HIGH DOSE FLUZONE HIGH DOSE 2020 Completed [facility] OVER 65 OVER 65 11:15:00 - [facility] FLUZONE HIGH DOSE FLUZONE HIGH DOSE 2020 Completed [facility] OVER 65 OVER 65 11:15:00 - [facility] FLUZONE HIGH DOSE FLUZONE HIGH DOSE 2020 Completed [facility] OVER 65 OVER 65 11:15:00 - [facility] Prevnar 13 Prevnar 13 2020-05-28 Completed [facility] -Pneumonia Vaccine -Pneumonia Vaccine 08:38:00 - [facility] Prevnar 13 Prevnar 13 2020-05-28 Completed [facility] -Pneumonia Vaccine -Pneumonia Vaccine 08:38:00 - [facility] Prevnar 13 Prevnar 13 2020-05-28 Completed [facility] -Pneumonia Vaccine -Pneumonia Vaccine 08:38:00 - [facility] Prevnar 13 Prevnar 13 2020-05-28 Completed [facility] -Pneumonia Vaccine -Pneumonia Vaccine 08:38:00 - [facility] Prevnar 13 Prevnar 13 2020-05-28 Completed [facility] -Pneumonia Vaccine -Pneumonia Vaccine 08:38:00 - [facility] Prevnar 13 Prevnar 13 2020-05-28 Completed [facility] -Pneumonia Vaccine -Pneumonia Vaccine 08:38:00 - [facility] Prevnar 13 Prevnar 13 2020-05-28 Completed [facility] -Pneumonia Vaccine -Pneumonia Vaccine 08:38:00 - [facility] Prevnar 13 Prevnar 13 2020-05-28 Completed [facility] -Pneumonia Vaccine -Pneumonia Vaccine 08:38:00 - [facility] Prevnar 13 Prevnar 13 2020-05-28 Completed [facility] -Pneumonia Vaccine -Pneumonia Vaccine 08:38:00 - [facility] Prevnar 13 Prevnar 13 2020-05-28 Completed [facility] -Pneumonia Vaccine -Pneumonia Vaccine 08:38:00 - [facility] Prevnar 13 Prevnar 13 2020-05-28 Completed [facility] -Pneumonia Vaccine -Pneumonia Vaccine 00:00:00 [facility] Hyalgan 20 mg Hyalgan 20 mg 2019-11-15 Completed Common S [facility]irit 10:51:00 [facility] Hyalgan 20 mg Hyalgan 20 mg 2019-11-15 Completed Common S pirit 10:50:00 [facility] Hyalgan 20 mg Hyalgan 20 mg 2019-11-08 Completed Common S pirit 15:00:00 [facility] Hyalgan 20 mg Hyalgan 20 mg 2019-11-08 Completed Common S pirit 14:59:00 [facility] Hyalgan 20 mg Hyalgan 20 mg 2019-10-31 Completed Common S pirit 10:43:00 [facility] Hyalgan 20 mg Hyalgan 20 mg 2019-10-31 Completed Common S [facility]irit 10:42:00 [facility] LIDOCAINE HCL LIDOCAINE HCL 2019-08-09 Completed Common S pirit 10MG/ML 10MG/ML 11:56:00 [facility] LIDOCAINE HCL LIDOCAINE HCL 2019-08-09 Completed Common S pirit 10MG/ML 10MG/ML 11:56:00 [facility] Kenalog Kenalog 2019-08-09 Completed [facility] (Triamcinolone) (Triamcinolone) 11:55:00 - [facility] Kenalog Kenalog 2019-08-09 Completed [facility] (Triamcinolone) (Triamcinolone) 11:55:00 - [facility] FLUZONE HIGH DOSE FLUZONE HIGH DOSE 2019-07-30 Completed [facility] OVER 65 OVER 65 17:38:00 - [facility] FLUZONE HIGH DOSE FLUZONE HIGH DOSE 2019-07-30 Completed [facility] OVER 65 OVER 65 17:38:00 - [facility] FLUZONE HIGH DOSE FLUZONE HIGH DOSE 2019-07-30 Completed [facility] OVER 65 OVER 65 17:38:00 - [facility] FLUZONE HIGH DOSE FLUZONE HIGH DOSE 2019-07-30 Completed [facility] OVER 65 OVER 65 17:38:00 - [facility] FLUZONE HIGH DOSE FLUZONE HIGH DOSE 2019-07-30 Completed [facility] OVER 65 OVER 65 17:38:00 - [facility] FLUZONE HIGH DOSE FLUZONE HIGH DOSE 2019-07-30 Completed [facility] OVER 65 OVER 65 17:38:00 - [facility] FLUZONE HIGH DOSE FLUZONE HIGH DOSE 2019-07-30 Completed [facility] OVER 65 OVER 65 17:38:00 - [facility] FLUZONE HIGH DOSE FLUZONE HIGH DOSE 2019-07-30 Completed [facility] OVER 65 OVER 65 17:38:00 - [facility] FLUZONE HIGH DOSE FLUZONE HIGH DOSE 2019-07-30 Completed [facility] OVER 65 OVER 65 17:38:00 - [facility] FLUZONE HIGH DOSE FLUZONE HIGH DOSE 2019-07-30 Completed [facility] OVER 65 OVER 65 17:38:00 - [facility] Zostavax Zostavax 2012-05-28 Completed [facility] 09:04:00 - [facility] Zostavax Zostavax 2012-05-28 Completed [facility] 09:04:00 - [facility] Zostavax Zostavax 2012-05-28 Completed [facility] 09:04:00 - [facility] Zostavax Zostavax 2012-05-28 Completed [facility] 09:04:00 - [facility] Zostavax Zostavax 2012-05-28 Completed [facility] 09:04:00 - [facility] Zostavax Zostavax 2012-05-28 Completed [facility] 09:04:00 - [facility] Zostavax Zostavax 2012-05-28 Completed [facility] 09:04:00 - [facility] Zostavax Zostavax 2012-05-28 Completed [facility] 09:04:00 - [facility] Zostavax Zostavax 2012-05-28 Completed [facility] 09:04:00 - [facility] Zostavax Zostavax 2012-05-28 Completed [facility] 09:04:00 - [facility] Tetanus Toxoid (TT) Tetanus Toxoid (TT) 2012-05-28 Completed [facility] 09:02:00 - [facility] Tetanus Toxoid (TT) Tetanus Toxoid (TT) 2012-05-28 Completed [facility] 09:02:00 - [facility] Tetanus Toxoid (TT) Tetanus Toxoid (TT) 2012-05-28 Completed [facility] 09:02:00 - [facility] Tetanus Toxoid (TT) Tetanus Toxoid (TT) 2012-05-28 Completed [facility] 09:02:00 - [facility] Tetanus Toxoid (TT) Tetanus Toxoid (TT) 2012-05-28 Completed [facility] 09:02:00 - [facility] Tetanus Toxoid (TT) Tetanus Toxoid (TT) 2012-05-28 Completed [facility] 09:02:00 - [facility] Tetanus Toxoid (TT) Tetanus Toxoid (TT) 2012-05-28 Completed [facility] 09:02:00 - [facility] Tetanus Toxoid (TT) Tetanus Toxoid (TT) 2012-05-28 Completed [facility] 09:02:00 - [facility] Tetanus Toxoid (TT) Tetanus Toxoid (TT) 2012-05-28 Completed [facility] 09:02:00 - [facility] Tetanus Toxoid (TT) Tetanus Toxoid (TT) 2012-05-28 Completed [facility] 09:02:00 - [facility] Pneumovax (PPSV23) Pneumovax (PPSV23) 2008-05-28 Completed [facility] 09:02:00 [facility] Pneumovax (PPSV23) Pneumovax (PPSV23) 2008-05-28 Completed [facility] 09:02:00 [facility] Pneumovax (PPSV23) Pneumovax (PPSV23) 2008-05-28 Completed [facility] 09:02:00 [facility] Pneumovax (PPSV23) Pneumovax (PPSV23) 2008-05-28 Completed [facility] 09:02:00 [facility] Pneumovax (PPSV23) Pneumovax (PPSV23) 2008-05-28 Completed [facility] 09:02:00 [facility] Pneumovax (PPSV23) Pneumovax (PPSV23) 2008-05-28 Completed [facility] 09:02:00 [facility] Pneumovax (PPSV23) Pneumovax (PPSV23) 2008-05-28 Completed [facility] 09:02:00 [facility] Pneumovax (PPSV23) Pneumovax (PPSV23) 2008-05-28 Completed [facility] 09:02:00 - [facility] Pneumovax (PPSV23) Pneumovax (PPSV23) 2008-05-28 Completed [facility] 09:02:00 [facility] Pneumovax (PPSV23) Pneumovax (PPSV23) 2008-05-28 Completed [facility] 09:02:00 [facility] Vital Signs Vital Name Observation Time Observation Value Comments Source height 2022-10-06 08:40:00 64 [in_i] [facility] weight 2022-10-06 08:40:00 155.2 [lb_av] [facility] temperature 2022-10-06 08:40:00 97.5 [degF] [facility] bmi 2022-10-06 08:40:00 26.64 kg/m2 [facility] oximetry 2022-10-06 08:40:00 97 % [facility] respiratory rate 2022-10-06 08:40:00 16 /min Comm on [facility] blood pressure 2022-10-06 08:40:00 138 mm[Hg] [facility] - systolic [facility] blood pressure 2022-10-06 08:40:00 86 mm[Hg] [facility] - diastolic [facility] height 2022-07-07 08:20:00 64 [in_i] [facility] weight 2022-07-07 08:20:00 148.4 [lb_av] [facility] temperature 2022-07-07 08:20:00 97.2 [degF] Common [facility] bmi 2022-07-07 08:20:00 25.47 kg/m2 [facility] oximetry 2022-07-07 08:20:00 96 % [facility] respiratory rate 2022-07-07 08:20:00 16 /min Comm on [facility] blood pressure 2022-07-07 08:20:00 134 mm[Hg] Common [facility] - systolic [facility] blood pressure 2022-07-07 08:20:00 78 mm[Hg] [facility] - diastolic [facility] height 2022-04-22 09:00:00 64 [in_i] Common [facility] weight 2022-04-22 09:00:00 145 [lb_av] [facility] bmi 2022-04-22 09:00:00 24.89 kg/m2 [facility] height 2022-04-07 09:20:00 64 [in_i] Common [facility] weight 2022-04-07 09:20:00 149.2 [lb_av] [facility] temperature 2022-04-07 09:20:00 97.3 [degF] Common [facility] bmi 2022-04-07 09:20:00 25.61 kg/m2 [facility] oximetry 2022-04-07 09:20:00 98 % [facility] respiratory rate 2022-04-07 09:20:00 16 /min Comm on [facility] blood pressure 2022-04-07 09:20:00 124 mm[Hg] [facility] - systolic [facility] blood pressure 2022-04-07 09:20:00 86 mm[Hg] [facility] - diastolic [facility] height 2022-01-08 09:40:00 64 [in_i] Common [facility] weight 2022-01-08 09:40:00 154 [lb_av] [facility] temperature 2022-01-08 09:40:00 97.3 [degF] [facility] bmi 2022-01-08 09:40:00 26.43 kg/m2 [facility] oximetry 2022-01-08 09:40:00 97 % [facility] respiratory rate 2022-01-08 09:40:00 16 /min Comm on [facility] blood pressure 2022-01-08 09:40:00 119 mm[Hg] [facility] - systolic [facility] blood pressure 2022-01-08 09:40:00 70 mm[Hg] [facility] - diastolic [facility] height 2022-01-08 10:00:00 64 [in_i] Common S [facility] weight 2022-01-08 10:00:00 154 [lb_av] Common [facility] temperature 2022-01-08 10:00:00 97.3 [degF] Common [facility] bmi 2022-01-08 10:00:00 26.43 kg/m2 [facility] oximetry 2022-01-08 10:00:00 97 % Common [facility] respiratory rate 2022-01-08 10:00:00 16 /min Comm on [facility] blood pressure 2022-01-08 10:00:00 119 mm[Hg] [facility] - systolic [facility] blood pressure 2022-01-08 10:00:00 70 mm[Hg] [facility] - diastolic [facility] height 2021-10-27 08:00:00 64 [in_i] Common [facility] weight 2021-10-27 08:00:00 155 [lb_av] Common [facility] temperature 2021-10-27 08:00:00 97.2 [degF] [facility] bmi 2021-10-27 08:00:00 26.6 kg/m2 [facility] oximetry 2021-10-27 08:00:00 96 % [facility] respiratory rate 2021-10-27 08:00:00 16 /min Comm on [facility] blood pressure 2021-10-27 08:00:00 130 mm[Hg] Common [facility] systolic [facility] blood pressure 2021-10-27 08:00:00 72 mm[Hg] Common [facility] diastolic [facility] Procedures Procedure Date / Time Performed Performing Clinician Sour tamika [id number] 2020-11-25 00:00:00 [facility] [id number] 2020-02-26 00:00:00 [facility] Encounters Start End Encounter Admission Attending Care Care Encounter Source Date/Time Date/Time Type Type Clinicians Facility Department ID 2022-10-04 Outpatient Knifley, STLMLC STLMLC [id number] [facility] 10:00:01 Perla [facility] 2022-07-05 Outpatient Knifley, STLMLC STLMLC [id number] [facility] 09:45:00 Perla 38971 [facility] 2021-11-18 Outpatient Knifley, STLMLC STLMLC [id number] [facility] 14:10:39 Perla 13342 [facility] 2021-11-18 Outpatient Knifley, STLMLC STLMLC [id number] [facility] 13:53:21 Perla 46593 [facility] 2021-11-18 Outpatient Knifley, STLMLC STLMLC [id number] [facility] 13:09:17 Perla 61544 [facility] 2021-11-18 Outpatient Knifley, STLMLC STLMLC [id number] Common 11:34:16 Perla 29106 [facility] 2021-11-18 Outpatient Knifley, STLMLC STLMLC [id number] Common 11:05:21 Perla 91205 [facility] 2021-11-18 Outpatient Knifley, STLMLC STLMLC [id number] [facility] 11:03:04 Perla 81012 [facility] 2020-12-22 Inpatient EL Mario, HCATO HCATO [id number] [facility] 00:43:20 Donlad [facility] 2020-11-25 Inpatient EL Mario, HCATO ADMI [id number] [facility] 13:00:00 Donald 44 [facility] 2020-04-23 Inpatient EL Mario, HCATO REHA [id number] [facility] 00:02:00 Donald 65 [facility] 2020-03-24 Inpatient EL Mario, HCATO REHA [id number] [facility] 00:03:00 Donald 95 [facility] 2020-02-12 Inpatient EL Mario, HCATO ADMI [id number] [facility] 13:00:00 Donald 87 [facility] 2022-10-06 2022-10-06 OFFICE STLMLC STLMLC [id number] [facility] 00:00:00 00:00:00 VISIT EST Spir it PT LEVEL 3 [facility] 2022-07-07 2022-07-07 OFFICE STLMLC STLMLC [id number] [facility] 00:00:00 00:00:00 VISIT EST Spir it PT LEVEL 3 [facility] 2022-04-22 2022-04-22 OFFICE STLMLC STLMLC [id number] [facility] 00:00:00 00:00:00 VISIT EST Spir it PT LEVEL 3 - [facility] 2022-04-22 2022-04-22 (TEL) STLMLC STLMLC [id number] [facility] 00:00:00 00:00:00 [facility] 2022-04-07 2022-04-07 OFFICE STLMLC STLMLC [id number] [facility] 00:00:00 00:00:00 VISIT EST Spir it PT LEVEL 3 [facility] 2022-03-25 2022-03-25 (TEL) STLMLC STLMLC [id number] [facility] 00:00:00 00:00:00 [facility] 2022-01-08 2022-01-08 OFFICE STLMLC STLMLC [id number] [facility] 00:00:00 00:00:00 VISIT EST Spir it PT LEVEL 3 [facility] 2022-01-08 2022-01-08 SUB ANNUAL STLMLC STLMLC [id number] [facility] 00:00:00 00:00:00 M[facility] VISIT [facility] 2021-10-27 2021-10-27 OFFICE STLMLC STLMLC [id number] Co m[facility] 00:00:00 00:00:00 VISIT EST Spir it PT LEVEL 3 [facility] 2021-07-06 2021-07-06 (TEL) STLMLC STLMLC [id number] [facility] 00:00:00 00:00:00 [facility] 2021-06-30 2021-06-30 Outpatient STLMLC STLMLC [id number] [facility] 00:00:00 00:00:00 [facility] 2021-04-24 2021-04-24 Outpatient IRAIDA Hendrickson, HCATO PAIN [id number] [facility] 06:25:00 06:25:00 Greg 23 [facility] 2021-02-27 2021-02-27 Outpatient IRAIDA Hendrickson, HCATO PAIN [id number] [facility] 11:57:00 11:57:00 Greg 07 [facility] 2021-01-07 2021-01-07 Outpatient STLMLC STLMLC [id number] [facility] 00:00:00 00:00:00 [facility] 2020-11-27 2020-11-27 Outpatient EVARISTO Delgadillo REHA [id number] [facility] 13:36:00 13:36:00 Donald 61 [facility] 2020-11-18 2020-11-18 Outpatient Mario, HCACL LABO [id number] [facility] 18:14:00 18:14:00 Donald 50 [facility] 2020-11-18 2020-11-18 Outpatient STLMLC STLMLC [id number] [facility] 00:00:00 00:00:00 [facility] 2020-08-11 2020-08-11 Outpatient MARIA R VailTO RADI [id number] [facility] 16:00:00 16:00:00 Wei 03 [facility] 2020 2020 Outpatient STLMLC STLMLC [id number] [facility] 00:00:00 00:00:00 [facility] 2020-05-28 2020-05-28 [facility] [id number] [facility] 08:20:00 08:20:00 [facility] it [facility] 2020-04-15 2020-04-15 [facility] [id number] [facility] 16:17:00 16:17:00 [facility] [address] [facility] 2020-02-28 2020-02-28 Outpatient MARIA R DelgadilloTO REHA [id number] [facility] 09:48:00 09:48:00 Donald 17 [facility] 2020-02-12 2020-02-12 Outpatient Mario, HCACL LABO [id number] [facility] 18:21:00 18:21:00 Donald 43 [facility] 2020-01-09 2020-01-09 [facility] [id number] [facility] 14:27:00 14:27:00 [facility] [address] [facility] 2019-12-03 2019-12-03 [facility] [id number] [facility] 09:00:00 09:00:00 [facility] [address] [facility] 2019-11-29 2019-11-29 [facility] [id number] [facility] 09:20:00 09:20:00 [facility] [facility] [address] [facility] 2019-11-15 2019-11-15 [facility] [id number] [facility] 09:45:00 09:45:00 [facility] 2019-11-08 2019-11-08 [facility] [id number] [facility] 14:45:00 14:45:00 [facility] 2019-10-31 2019-10-31 [facility] [id number] [facility] 10:45:00 10:45:00 [facility] 2019-10-25 2019-10-25 [facility] [id number] [facility] 13:20:00 13:20:00 [facility] [address] [facility] [address] [facility] 2019-10-09 2019-10-09 [facility] [id number] [facility] 08:30:00 08:30:00 [facility] 2019-08-09 2019-08-09 [facility] [id number] [facility] 11:00:00 11:00:00 [facility] Results Test Description Test Time Test Comments Results Result [facility] e Comments - XR FLUORO FOR 2021-04-24 SPINE INJ 19:01:00 [facility] : 1945 Sex: F Patient Name: KALLI GIPSON Unit No: [id number] EXAMS: CPT CODE: [id number] XR FLUORO FOR SPINE INJ 59921 CERVICAL FACET DIAGNOSTIC INJECTION REFERRAL PHYSICIAN: None Preoperative diagnosis: Cervical spondylosis without myelopathy or radiculopathy Postoperative diagnosis: Cervical spondylosis without myelopathy or radiculopathy Procedure performed: Fluoroscopically guided needle localization of the right C1-2 (atlantoaxial) facet with arthrogram and diagnostic injection of local anesthetic and steroid. 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 Aspiration was negative. Provocation was concordant for usual pain. Anesthetic response was positive with the patient noting complete relief of her right cervicalgia. Preinjection VAS 9/10. Postinjection VAS 0/10. Steroid response pending follow-up. Estimated blood loss: Minimal Anesthesia: TIVA Complications: None Details of procedure: After obtaining stable vital signs, informed consent and IV access, with no contraindications to proceeding, the patient was taken to the operating room and placed in a prone position with all extremities padded and appropriate monitors placed. The patient was sterilely prepped and draped over the cervical spine. Using fluoroscopic visualization the insertion sites were marked for a posterior paravertebral approaches and using standard technique, a 26-gauge needle was inserted into each joint capsule without paresthesias. Aspiration was negative. Isovue-300 contrast 0.2 mL was injected to produce each arthrogram. There were no signs of intravascular or intrathecal uptake. Bupivacaine 0.75% 0.25 mL with lidocaine 4% 0.25 mL and dexamethasone 8 mg was then injected incrementally with frequent negative aspirations at each joint. There were no signs of intravascular or intrathecal uptake. The patient's vital signs remained stable. All needles were removed and the patient was taken to the PACU in good condition. Image: Image 1 Image: Image 2 at 1901 Reported and signed by: Greg Hendrickson M.D. [facility] NAME: KALLI GIPSON [address] PHYS: Greg Coles MD [place] [address] : 1945 AGE: 75 SEX: F LOC: ANTONY PHONE #: [phone] EXAM DATE: 04/24/2021 [place]: [place] [facility] [place]: [phone] RAD #: D/C DT PAGE 1 Signed Report (CONTINUED) Patient Name: KALLI GIPSON Unit No: [id number] EXAMS: CPT CODE: [id number] XR FLUORO FOR SPINE INJ 10639 (Continued) CC: Technologist: Lisa Eldridge(R) Transcribed D/ (1900) [facility] [place] NAME: KALLI GIPSON [address] PHYS: Greg Coles MD [place], [place] [address] : 1945 AGE: 75 SEX: F LOC: ANTONY PHONE #: [phone] EXAM DATE: 04/24/2021 STATUS: REG SD FAX #: [phone] RAD #: D/C DT PAGE 2 Signed Report Patient Name: KALLI GIPSON Unit No: [id number] EXAMS: CPT CODE: [id number] XR FLUORO FOR SPINE INJ [id number] (Continued) Orig Print D/T: S: 04/24/2021 (1903) [facility] NAME: KALLI GIPSON [address] PHYS: Greg Coles MD [place], [place] [address] : 1945 AGE: 75 SEX: F LOC: ANTONY PHONE #: [phone] EXAM DATE: 04/24/2021 [place]US: [place] [facility] [place]: [phone] RAD #: D/C DT PAGE 3 Signed Report - XR FLUORO FOR 2021-02-27 SPINE INJ 20:26:00 [facility] 1945 Sex: F Patient Name: KALLI GIPSON Unit No: [id number] EXAMS: CPT CODE: [id number] XR FLUORO FOR SPINE INJ 61264 CERVICAL FACET DIAGNOSTIC INJECTION REFERRAL PHYSICIAN: Wei Vail M.D. Preoperative diagnosis: Cervical spondylosis without myelopathy or radiculopathy Postoperative diagnosis: Cervical spondylosis without myelopathy or radiculopathy Procedure performed: Fluoroscopically guided needle localization of the right C1-2 facet (atlantoaxial joint) with arthrogram and diagnostic injection of local anesthetic and steroid. Findings:Moderate hypertrophy and capsular degeneration was seen at the right atlantoaxial joint. Aspiration was negative. Provocation was concordant for usual pain. Anesthetic response was positive with the patient noting relief of her right suboccipital pain. Preinjection VAS 7/10. Postinjection VAS 0/10. Steroid response pending follow-up. Estimated blood loss: Minimal Anesthesia: TIVA Complications: None Details of procedure: After obtaining stable vital signs, informed consent and IV access, with no contraindications to proceeding, the patient was taken to the operating room and placed in a prone position with all extremities padded and appropriate monitors placed. The patient was sterilely prepped and draped over the cervical spine. Using fluoroscopic visualization the insertion site was marked for a posterior paravertebral approach and using standard technique, a 27-gauge needle was inserted into the joint capsule without paresthesias. Aspiration was negative. Isovue-300 contrast 0.2 mL was injected to produce the arthrogram. There were no signs of intravascular or intrathecal uptake. Bupivacaine 0.75% 0.25 mL with lidocaine 4% 0.25 mL and dexamethasone 8 mg was then injected incrementally with frequent negative aspirations at the joint. There were no signs of intravascular or intrathecal uptake. The patient's vital signs remained stable. The needle was removed and the patient was taken to the PACU in good condition. Image: Image 1 Image: Image 2 at 2025 Reported and signed by: Greg Hendrickson M.D. [facility] NAME: KALLI GIPSON [address] PHYS: Greg Coles MD [place] [address] : 1945 AGE: 75 SEX: F LOC: ANTONY PHONE #: [phone] EXAM DATE: 02/27/2021 [place]US[place] [facility] [place]: [phone] RAD #: D/C DT PAGE 1 Signed Report (CONTINUED) Patient Name: KALLI GIPSON Unit No: [id number] EXAMS: CPT CODE: [id number] XR FLUORO FOR SPINE INJ 06665 (Continued) CC: Technologist: Lisa Eldridge(R) Transcribed D/ (2025) [facility] [place] NAME: KALLI GIPSON [address] PHYS: Greg Coles MD [place] [address] : 1945 AGE: 75 SEX: F LOC: ANTONY PHONE #: [phone] EXAM DATE: 02/27/2021 [place]US: [place] [facility] [place]: [phone] RAD #: D/C DT PAGE 2 Signed Report Patient Name: KALLI GIPSON Unit No: [id number] EXAMS: CPT CODE: [id number] XR FLUORO FOR SPINE INJ 66304 (Continued) Orig Print D/T: S: 02/27/2021 (2028) [facility] NAME: KALLI GIPSON [address] PHYS: Greg Coles MD [place] [address] : 1945 AGE: 75 SEX: F LOC: ANTONY PHONE #: [phone] EXAM DATE: 02/27/2021 STATUS: REG SDC FAX #: [phone] RAD #: D/C DT PAGE 3 Signed Report BASIC METABOLIC PANEL 2020-11-26 06:18:00 Test Item Value Reference Range Interpretation Comme nts SODIUM (test code = NA) 139 mmol/L 136-145 N POTASSIUM (test code = K) 4.7 mmol/L 3.5-5.1 N CHLORIDE (test code = CL) 105.0 mmol/L 98-107 N CARBON DIOXIDE (test code = 22.5 mmol/L 21-32 N CO2) GLUCOSE (test code = GLU) 100 mg/dL 70-110 N BLOOD UREA NITROGEN (test code 26 mg/dL 7-18 H = BUN) GLOMERULAR FILTRATION RATE 49.5 >60 U nit of measure: mL/min/1.73 (test code = GFR) [id number] Range:Healthy Adults >90 mL/m in/1.73 m2 For Chronic Kidney Disease: Stage II Mild Decreas e in GFR 60-90 Stage III Moder ate Decrease in GFR 30-59 St age IV Severe Decrease in GFR 15-29 Stage V Kidney Failure <15 CREATININE (test code = CREAT) 1.08 mg/dL 0.55-1.30 N CALCIUM (test code = CA) 8.3 mg/dL 8.2-10.1 N HGB [id number] 05:55:00 Test Item Value Reference Range Interpretation Comments HEMOGLOBIN (test code = HGB) 10.6 g/dL 12-16 L HEMATOCRIT (test code = HCT) 32.9 % 37-47 L SPECIMEN COMMENT: POD #1Novel Coronavirus 2019 [id number] 06:32:00 Test Item Value Reference Range Interpretation Comments Novel Coronavirus Negative Negative Positive r esults are 2019 Inhouse (test indicativ e of the presence code = COVNONPUI) ofSARS-CoV -2 RNA, clinical correlation wit h patient historyand othe r diagnostic info rmation is necessary to determinepatien t infection status. Positiv e results do not rule out bacterial infection or co -infection with other viru ses. Negative result s do not preclude SARS-C oV-2 infection andsh ould not be used as the brenda e basis for patient managementdecis ions. Negative result s must be combined with otherclinical observations, p atient history, and epidemiological information . Detection of SARS-CoV-2 RNA may be affe cted bysample collec tion methods, storag e conditions, and /or stageof infection. Lexi l RNA mutations, vacc inations, antiviraltherap eutics, antibiotics, chemotherapeuti c orimmunosuppres david drugs have not been e valuated for effectson d etection. Results are for the identification of SARS-CoV-2 RNA usingthe Alvarado M2000 Sy stem under the FDA Emergen cy UseAuthorizatio n. The testing is perf ormed by personneltraine d in the procedures for the KitOrder000 molecular diagnostic SARS-CoV-2 assa y in vitro. Novel Coronavirus 2018 [id number] 06:32:00 Test Item Value Reference Range Interpretation Comments Novel Coronavirus Negative Negative Positive r esults are 2019 Inhouse (test indicativ e of the presence code = COVNONPUI) ofSARS-CoV -2 RNA, clinical correlation wit h patient historyand othe r diagnostic info rmation is necessary to determinepatien t infection status. Positiv e results do not rule out bacterial infection or co -infection with other viru ses. Negative result s do not preclude SARS-C oV-2 infection andsh ould not be used as the brenda e basis for patient managementdecis ions. Negative result s must be combined with otherclinical observations, p atient history, and epidemiological information . Detection of SARS-CoV-2 RNA may be affe cted bysample collec tion methods, storag e conditions, and /or stageof infection. Lexi l RNA mutations, vacc inations, antiviraltherap eutics, antibiotics, chemotherapeuti c orimmunosuppres david drugs have not been e valuated for effectson d etection. Results are for the identification of SARS-CoV-2 RNA usingthe Alvarado M2000 Sy stem under the FDA Emergen cy UseAuthorizatio n. The testing is perf ormed by personneltraine d in the procedures for the Alvarado M2000 molecular diagnostic SARS-CoV-2 assa y in vitro. COMPREHENSIVE METABOLIC [id number] 15:15:00 Test Item Value Reference Range Interpretation Comments SODIUM (test code = 141 mmol/L 136-145 N NA) POTASSIUM (test code = 4.9 mmol/L 3.5-5.1 N K) CHLORIDE (test code = 103.0 mmol/L 98-107 N CL) CARBON DIOXIDE (test 28.8 mmol/L 21-32 N code = CO2) GLUCOSE (test code = 93 mg/dL 70-110 N GLU) BLOOD UREA NITROGEN 21 mg/dL 7-18 H (test code = BUN) GLOMERULAR FILTRATION 48.4 >60 Unit o f measure: RATE (test code = GFR) mL/mi n/1.73 [id number] Range:Healthy Adults >90 mL/min/1.73 m2 For Chronic Kidney Disease: Stage II Mild Decrease i n GFR 60-90 Stage III Moderate Decrea se in GFR 30-59 St age IV Severe Decre ase in GFR 15-29 St age V Kidney Failur e <15 CREATININE (test code 1.10 mg/dL 0.55-1.30 N = CREAT) TOTAL PROTEIN (test 7.4 g/dL 6.4-8.2 N code = PROT) ALBUMIN (test code = 3.8 g/dL 3.4-5.0 N ALB) GLOBULIN (test code = 3.6 g/dL 2.2-4.2 N GLOB) ALBUMIN/GLOBULIN RATIO 1.1 0.7-2.0 N (test code = A/G) CALCIUM (test code = 8.9 mg/dL 8.2-10.1 N CA) BILIRUBIN TOTAL (test 0.30 mg/dL 0.2-1.00 N code = BILT) SGOT/AST (test code = 20.0 U/L 15-37 N AST) SGPT/ALT (test code = 27.0 U/L 12-78 N Please note new ALT) normal range. ALKALINE PHOSPHATASE 125 U/L 46-116 H TOTAL (test code = ALKP) PROTHROMBIN [id number] 15:09:00 Test Item Value Reference Range Interpretation Comments PROTHROMBIN TIME 11.7 secs 10.1-12.5 N PATIENT (test code = PTP) INTERNATIONAL NORMAL 1.03 <2.0 RECOMME NDED THERAPEUTIC RATIO (test code = RANGE FOR ORAL INR) ANTICOAGULANTTR EATMENT: CONDITION INRPr ophylaxis of venous throm bosis in 2.0 - 3.0 high- risk medical or surg ical patientsTreatme nt of venous thrombos is 2.0 - 3.0Prevention o f embolism 2.0 - 3.0Prevention o f recurrent embol ism, or 3.0 - 4.5 patie nts with mechanical pros thetic intravascular v ordaz IS PATIENT ON ANTICOAGULANTS ? [facility] been notified if Patient is on Heparin Drip? NOIf Yes, orderCBC, OCCULT BLOOD, PT every other day NTHROMBOPLASTIN TIME [id number] 15:09:00 Test Item Value Reference Range Interpretation Comments PTT ACTIVATED (test code = APTT) 33.5 secs 24.9-37.0 N IS PATIENT ON ANTICOAGULANTS ? N[facility] Lab been notified if Patient is on Heparin Drip? NOIf Yes, orderCBC, OCCULT BLOOD, PT every other day NCBC W/AUTO DIFF 2020-11-18 14:50:00 Test Item Value Reference Range Interpretation Comments WHITE BLOOD CELL (test code = WBC) 6.0 K/mm3 5.8-11.0 N RED BLOOD CELL (test code = RBC) 4.45 M/mm3 4.2-5.4 N HEMOGLOBIN (test code = HGB) 12.9 g/dL 12-16 N HEMATOCRIT (test code = HCT) 39.1 % 37-47 N MEAN CELL VOLUME (test code = MCV) 88 fL 80-98 N MEAN CELL HGB (test code = MCH) 29.0 pg 27-34 N MEAN CELL HGB CONCENTRATION (test 33.0 g/dL 30.8-34.1 N code = MCHC) RED CELL DISTRIBUTION WIDTH (test 13.2 % 11-16 N code = RDW) PLT (test code = PLT) 310 K/mm3 130-400 N MEAN PLATELET VOLUME (test code = 10.0 fL 8.9-12.1 N MPV) NEUTROPHIL % (test code = NT%) 58.4 % 45-70 N LYMPHOCYTE % (test code = LY%) 27.5 % 20-40 N MONOCYTE % (test code = MO%) 10.7 % 3-10 H EOSINOPHIL % (test code = EO%) 2.3 % 1-5 N BASOPHIL % (test code = BA%) 0.8 % 0.0-1.1 N NEUTROPHIL # (test code = NT#) 3.49 K/mm3 2.00-7.50 N LYMPHOCYTE # (test code = LY#) 1.65 K/mm3 1.50-4.00 N MONOCYTE # (test code = MO#) 0.64 K/mm3 0.2-0.8 N EOSINOPHIL # (test code = EO#) 0.14 K/mm3 0.04-0.4 N BASOPHIL # (test code = BA#) 0.05 K/mm3 0.02-0.10 N MANUAL DIFF REQUIRED (test code = NO MANUAL DIFF MDIFF) NUCLEATED RED BLOOD CELL (test 0 % 0-0 N code = NRBC) - MRI C-SPINE W/O [id number] 07:41:00 [facility] 1945 Sex: F Patient Name: KALLI GIPSON Unit No: [id number] EXAMS: CPT CODE: [id number] MRI C- SPINE W/O CONT 60944 TECHNIQUE: Multiplanar, multisequence MRI examination performed of the cervical spine without intravenous contrast material. COMPARISON: None available. FINDINGS: Alignment: There is straightening of normal cervical lordosis. Bone Lesion / Fracture: None present. Cervical Spinal Cord: Nocord expansion or abnormal signal. Prevertebral / Paraspinal Soft Tissues: Unremarkable. Severe degenerative changes of the right atlantooccipital joint are noted with prominent bone marrow edema. C2/3: Left asymmetric disc bulge osteophyte complex is present as well as left-sided uncovertebral hyper trophy. There is marked left, moderate right foraminal stenosis. Moderate central canal stenosis is present. C3/4: Large left asymmetric disc bulge osteophyte complex is present as well as severe bilateral uncovertebral hypertrophy. There is severe central canal stenosis as well as severe bilateral foraminal narrowing. C4/5: Large disc bulge osteophyte complex contributes to severe central canal stenosis. Severe bilateral uncovertebral hypertrophy and mild facet degeneration result in severe foraminal stenosis, greater on the left. C5/6: Large disc bulge osteophyte complex contributes to severe central canal stenosis and slight mass effect on the spinal cord. No definite cord signal abnormality isvisualized. Severe bilateral uncovertebral hypertrophy results in severe bilateral foraminal narrowing. C6/7: A large disc bulge osteophyte complex is present as well as right greater than left uncovertebral hypertrophy. There is moderate left, severe right foraminal stenosis as well as severe centralcanal stenosis. C7/T1: Disc desiccation without significant bulge or herniation. Facet hypertrophy results in mild left, moderate right foraminal stenosis. No significant central canal stenosis. IMPRESSION: Advanced multilevel cervical spondylosis with severe central canal stenosis from C3-C4 to C6-C7. [facility] NAME: KALLI GIPSON [address] [place] [address] PHYS: Wei Gibbs MD : 1945 AGE: 75 SEX: F [place] [address] LOC: Y.MRI PHONE #: [phone] EXAM DATE: 08/11/2020 STATUS: DEP CLI FAX #: [phone] RAD #: D/C DT PAGE 1 Signed Report (CONTINUED) Patient Name: KALLI GIPSON Unit No: [id number] EXAMS: CPT CODE: [id number] MRI C-SPINE W/O CONT 16151 (Continued) at 0741 Reported and signed by: Taiwo Mahoney M.D. CC: Wei Vail M.D. Technologist: MICKEY ZURITA Transcribed D/ (0741) MariselaLaure [facility] NAME: KALLI GIPSON [address] [place] [address] PHYS: Wei Gibbs MD : 1945 AGE: 75SEX: F [place], [place] [address] LOC: Y.MRI PHONE #: [phone] EXAM DATE: 08/11/2020 STATUS: DEP CLI FAX #: [phone] RAD #: D/C DT PAGE 2 Signed Report Patient Name: KALLI GIPSON Unit No: [id number] EXAMS: CPT CODE: [id number] MRI C- SPINE W/O CONT 35168 (Continued) Orig Print D/T: S: 08/12/2020 (0744) [facility] NAME: KALLI GIPSON [address] [facility] PHYS: Wei Gibbs MD : 1945 AGE: 75 SEX: F [place] [address] LOC: Y.MRI PHONE #: [phone] EXAM DATE: 08/11/2020 STATUS: DEP CLI FAX #: [phone] RAD #: D/C DT PAGE 3 Signed ReportBASI METABOLIC [id number] 06:30:00 Test Item Value Reference Range Interpretation Comments SODIUM (test code = 141 mmol/L 136-145 N NA) POTASSIUM (test code = 4.6 mmol/L 3.5-5.1 N K) CHLORIDE (test code = 103.0 mmol/L 98-107 N CL) CARBON DIOXIDE (test 25.7 mmol/L 21-32 N code = CO2) GLUCOSE (test code = 108 mg/dL 70-110 N GLU) BLOOD UREA NITROGEN 17 mg/dL 7-18 N (test code = BUN) GLOMERULAR FILTRATION 59.7 >60 Unit o f measure: RATE (test code = GFR) mL/mi n/1.73 [id number] Range:Healthy Adults >90 mL/min/1.73 m2 For Chronic Kidney Disease: Stage II Mild Decrease i n GFR 60-90 Stage III Moderate Decrea se in GFR 30-59 St age IV Severe Decre ase in GFR 15-29 St age V Kidney Failur e <15 CREATININE (test code 0.92 mg/dL 0.55-1.30 N = CREAT) CALCIUM (test code = 8.3 mg/dL 8.2-10.1 N CA) HGB [id number] 06:05:00 Test Item Value Reference Range Interpretation Comments HEMOGLOBIN (test code = HGB) 11.1 g/dL 12-16 L HEMATOCRIT (test code = HCT) 34.2 % 37-47 L Novel Coronavirus 10:11:00 Test Item Value Reference Range Interpretation Comments Novel Coronavirus Negative Negative Positive r esults are 2019 Inhouse (test indicativ e of the presence code = [id number]) ofSARS-CoV -2 RNA, clinical correlation wit h patient historyand othe r diagnostic info rmation is necessary to determinepatien t infection status. Positiv e results do not rule out bacterial infection or co -infection with other viru ses. Negative result s do not preclude SARS-C oV-2 infection andsh ould not be used as the brenda e basis for patient managementdecis ions. Negative result s must be combined with otherclinical observations, p atient history, and epidemiological information . Detection of SARS-CoV-2 RNA may be affe cted bysample collec tion methods, storag e conditions, and /or stageof infection. Lexi l RNA mutations, vacc inations, antiviraltherap eutics, antibiotics, chemotherapeuti c orimmunosuppres david drugs have not been e valuated for effectson d etection. Results are for the identification of SARS-CoV-2 RNA usingthe Al[employer]ado M2000 Sy stem under the FDA Emergen cy UseAuthorizatio n. The testing is perf ormed by personnelwiley d in the procedures for the Alvarado M2000 molecular diagnostic SARS-CoV-2 assa y in vitro. Testing Criteria: Preprocedure ScreeningNovel Coronavirus 07:01:00 Test Item Value Reference Range Interpretation Comments Novel Coronavirus Negative Negative Positive r esults are 2019 Inhouse (test indicativ e of the presence code = [id number]) ofSARS-CoV -2 RNA, clinical correlation wit h patient historyand othe r diagnostic info rmation is necessary to determinepatien t infection status. Positiv e results do not rule out bacterial infection or co -infection with other viru ses. Negative result s do not preclude SARS-C oV-2 infection andsh ould not be used as the brenda e basis for patient managementdecis ions. Negative result s must be combined with otherclinical observations, p atient history, and epidemiological information . Detection of SARS-CoV-2 RNA may be affe cted bysample collec tion methods, storag e conditions, and /or stageof infection. Lexi l RNA mutations, vacc inations, antiviraltherap eutics, antibiotics, chemotherapeuti c orimmunosuppres david drugs have not been e valuated for effectson d etection. Results are for the identification of SARS-CoV-2 RNA usingthe Break30 M2000 Sy stem under the FDA Emergen cy UseAuthorizatio n. The testing is perf ormed by stefan albright in the procedures for the Break30 M2000 molecular diagnostic SARS-CoV-2 assa y in vitro. Testing Criteria: Preprocedure ScreeningCOMPREHENSIVE METABOLIC [id number] 14:47:00 Test Item Value Reference Range Interpretation Comments SODIUM (test code = 141 mmol/L 136-145 N NA) POTASSIUM (test code = 4.7 mmol/L 3.5-5.1 N K) CHLORIDE (test code = 103.0 mmol/L 98-107 N CL) CARBON DIOXIDE (test 28.5 mmol/L 21-32 N code = CO2) GLUCOSE (test code = 90 mg/dL 70-110 N GLU) BLOOD UREA NITROGEN 17 mg/dL 7-18 N (test code = BUN) GLOMERULAR FILTRATION 53.6 >60 Unit o f measure: RATE (test code = GFR) mL/mi n/1.73 [id number] Range:Healthy Adults >90 mL/min/1.73 m2 For Chronic Kidney Disease: Stage II Mild Decrease i n GFR 60-90 Stage III Moderate Decre ase in GFR 30-59 St age IV Severe Decre ase in GFR 15-29 St age V Kidney Failur e <15 CREATININE (test code 1.01 mg/dL 0.55-1.30 N = CREAT) TOTAL PROTEIN (test 7.8 g/dL 6.4-8.2 N code = PROT) ALBUMIN (test code = 4.0 g/dL 3.4-5.0 N ALB) GLOBULIN (test code = 3.8 g/dL 2.2-4.2 N GLOB) ALBUMIN/GLOBULIN RATIO 1.1 0.7-2.0 N (test code = A/G) CALCIUM (test code = 9.3 mg/dL 8.2-10.1 N CA) BILIRUBIN TOTAL (test 0.50 mg/dL 0.2-1.00 N code = BILT) SGOT/AST (test code = 21.0 U/L 15-37 N AST) SGPT/ALT (test code = 26.0 U/L 12-78 N Please note new ALT) normal range. ALKALINE PHOSPHATASE 133 U/L 46-116 H TOTAL (test code = ALKP) PROTHROMBIN [id number] 14:47:00 Test Item Value Reference Range Interpretation Comments PROTHROMBIN TIME 12.1 secs 10.1-12.5 N PATIENT (test code = PTP) INTERNATIONAL NORMAL 1.08 <2.0 RECOMME NDED THERAPEUTIC RATIO (test code = RANGE FOR ORAL INR) ANTICOAGULANTTR EATMENT: CONDITION INRPr ophylaxis of venous throm bosis in 2.0 - 3.0 high- risk medical or surg ical patientsTreatme nt of venous thrombos is 2.0 - 3.0Prevention o f embolism 2.0 - 3.0Prevention o f recurrent embol ism, or 3.0 - 4.5 patie nts with mechanical pros thetic intravascular v ordaz IS PATIENT ON ANTICOAGULANTS ? [facility] been notified if Patient is on Heparin Drip? NOTHROMBOPLASTIN TIME [id number] 14:47:00 Test Item Value Reference Range Interpretation Comments PTT ACTIVATED (test code = APTT) 30.6 secs 24.9-37.0 N IS PATIENT ON ANTICOAGULANTS ? [facility] been notified if Patient is on Heparin Drip? NOCBC W/AUTO [id number] 14:03:00 Test Item Value Reference Range Interpretation Comments WHITE BLOOD CELL (test code = WBC) 6.5 K/mm3 5.8-11.0 N RED BLOOD CELL (test code = RBC) 4.63 M/mm3 4.2-5.4 N HEMOGLOBIN (test code = HGB) 13.2 g/dL 12-16 N HEMATOCRIT (test code = HCT) 40.1 % 37-47 N MEAN CELL VOLUME (test code = MCV) 87 fL 80-98 N MEAN CELL HGB (test code = MCH) 28.5 pg 27-34 N MEAN CELL HGB CONCENTRATION (test 32.9 g/dL 30.8-34.1 N code = MCHC) RED CELL DISTRIBUTION WIDTH (test 13.9 % 11-16 N code = RDW) PLT (test code = PLT) 306 K/mm3 130-400 N MEAN PLATELET VOLUME (test code = 9.8 fL 8.9-12.1 N MPV) NEUTROPHIL % (test code = NT%) 56.2 % 45-70 N LYMPHOCYTE % (test code = LY%) 30.9 % 20-40 N MONOCYTE % (test code = MO%) 9.4 % 3-10 N EOSINOPHIL % (test code = EO%) 2.3 % 1-5 N BASOPHIL % (test code = BA%) 0.9 % 0.0-1.1 N NEUTROPHIL # (test code = NT#) 3.64 K/mm3 2.00-7.50 N LYMPHOCYTE # (test code = LY#) 2.00 K/mm3 1.50-4.00 N MONOCYTE # (test code = MO#) 0.61 K/mm3 0.2-0.8 N EOSINOPHIL # (test code = EO#) 0.15 K/mm3 0.04-0.4 N BASOPHIL # (test code = BA#) 0.06 K/mm3 0.02-0.10 N MANUAL DIFF REQUIRED (test code = NO MANUAL DIFF MDIFF) NUCLEATED RED BLOOD CELL (test 0 % 0-0 N code = NRBC)
--- NOTE | 2023-01-09 12:27 | EDPHYS ---
Physician Documentation [facility] Name: Kalli Gipson Age: 77 yrs Sex: Female : 1945 Arrival Date: 01/09/2023 Time: 11:56 Bed 19 Private MD: ED Physician Pawel Gan Historical: - Allergies: 01/09 12:04 Sulfa (Sulfonamide Antibiotics); kr3 - PMHx: 12:04 Hypertension; Vertigo; kr3 - PSHx: 12:05 bilateral knee replacement; kr3 - Immunization history:: Adult Immunizations up to date. - Social history:: Smoking status: Patient denies any tobacco usage or history of. Vital Signs: 12:01 BP 187 / 107; Pulse 88; Resp 18; Temp 98.4; Pulse Ox 98% on R/A; Weight 68.04 kg; kr3 Height 5 ft. 4 in. ; Pain 8/10; 12:01 Body Mass Index 25.75 (68.04 kg, 162.56 cm) kr3 12:01 Pain Scale: Adult kr3 MDM: 12:27 Patient medically screened. kdr 01/09 12:05 Order name: Pelvis XRAY kdr 01/09 12:05 Order name: Hip Left 2 View XRAY kdr Administered Medications: No medications were administered Disposition Summary: 01/09/23 12:27 Transfer Ordered Accepting Physician: omega mcmahon Transfer Location: [facility] kdr Reason: Higher level of care kdr Condition: Fair kdr Problem: new kdr Symptoms: are unchanged kdr Diagnosis - Closed left hip fracture minimally displaced kdr Forms: - Medication Reconciliation Form kdr - SBAR form kdr Signatures: Dispatcher [employer] EDMS Pawel Gan MD MD kdr Migdalia Lenz, RN RN kr3
--- NOTE | 2023-01-09 12:27 | ER ---
Nurse's Notes [facility] Name: Klali Gipson Age: 77 yrs Sex: Female : 1945 Arrival Date: 01/09/2023 Time: 11:56 Bed 19 Private MD: Diagnosis: Closed left hip fracture minimally displaced Presentation: 01/09 12:01 Chief complaint: EMS states: patient hung foot on something when walking down the steps kr3 and feel. denies LOC, denies hitting head. Coronavirus screen: Vaccine status: Patient reports receiving the 2nd dose of the covid vaccine. Ebola Screen: Patient denies travel to an Ebola-affected area in the 21 days before illness onset. Initial Sepsis Screen: Does the patient meet any 2 criteria? No. Patient's initial sepsis screen is negative. Does the patient have a suspected source of infection? No. Patient's initial sepsis screen is negative. Risk Assessment: Do you want to hurt yourself or someone else? Patient reports no desire to harm self or others. Onset of symptoms was January 09, 2023. 12:01 Method Of Arrival: EMS: [facility] kr3 12:01 Acuity: JOSUE 3 kr3 Triage Assessment: 12:05 General: Appears in no apparent distress. uncomfortable, Behavior is calm, cooperative, kr3 appropriate for age. Pain: Complains of pain in left femoral area and left hip. EENT: No signs and/or symptoms were reported regarding the EENT system. Neuro: Level of Consciousness is awake, alert, obeys commands, Oriented to person, place, time, situation. Cardiovascular: Patient's skin is warm and dry. Respiratory: Airway is patent Respiratory effort is even, unlabored, Respiratory pattern is regular, symmetrical. GI: No signs and/or symptoms were reported involving the gastrointestinal system. : No signs and/or symptoms were reported regarding the genitourinary system. Derm: Skin is intact. Musculoskeletal: Range of motion: limited in left hip. Historical: - Allergies: 12:04 Sulfa (Sulfonamide Antibiotics); kr3 - PMHx: 12:04 Hypertension; Vertigo; kr3 - PSHx: 12:05 bilateral knee replacement; kr3 - Immunization history:: Adult Immunizations up to date. - Social history:: Smoking status: Patient denies any tobacco usage or history of. Vital Signs: 12:01 BP 187 / 107; Pulse 88; Resp 18; Temp 98.4; Pulse Ox 98% on R/A; Weight 68.04 kg; kr3 Height 5 ft. 4 in. ; Pain 8/10; 12:01 Body Mass Index 25.75 (68.04 kg, 162.56 cm) kr3 12:01 Pain Scale: Adult kr3 ED Course: 11:56 Patient arrived in ED. kc6 11:58 Pawel Gan MD is Attending Physician. kdr 12:01 Migdalia Lenz, RN is Primary Nurse. kr3 12:04 Triage completed. kr3 12:07 Arm band placed on right wrist. Patient placed in an exam room, on a stretcher. kr3 12:26 Pelvis XRAY In Process Unspecified. EDMS 12:26 Hip Left 2 View XRAY In Process Unspecified. EDMS Administered Medications: No medications were administered Outcome: 12:27 ER care complete, transfer ordered by . kdr Signatures: Dispatcher [employer] EDMS Pawel Gan MD MD kdr Migdalia Lenz, RN RN kr3 Victoria Alicea RN RN kc6
--- NOTE | 2023-01-09 12:38 | RAD REPORT ---
EXAM DESCRIPTION: RAD - Pelvis - 01/09/2023 12:24 pm CLINICAL HISTORY: BLUNT TRAUMA COMPARISON: Hip Left 2 View dated 01/09/2023 TECHNIQUE: Single AP view of the pelvis. FINDINGS: Left midcervical femoral neck fracture, mildly displaced and impacted. The visualized pelv ic ring is intact. No suspicious osseous lesions. No significant degenerative changes or erosions of the hip joints. Other pelvic joints are unremarkable. Visualized aspects of the abdomen and soft tiss ues are unremarkable. IMPRESSION: Left midcervical femoral neck fracture, mildly displaced and impacted.
--- NOTE | 2023-01-09 12:39 | RAD REPORT ---
EXAM DESCRIPTION: RAD - Hip Left 2 View - 01/09/2023 12:24 pm CLINICAL HISTORY: PAIN COMPARISON: No comparisons TECHNIQUE: Left hip, AP and frogleg views of the left hip. FINDINGS: Left midcervical femoral neck fracture, mildly displaced and impacted. No dislocation. No acute or destructive bony process seen. IMPRESSION: Left midcervical femoral neck fracture, mildly displaced and impacted.
[2023-01-09] MEDS ORDERED: MORPHINE 4 MG/ML SYR ONE (13:03)
[2023-01-09] MEDS ORDERED: ONDANSETRON 4 MG/2 ML VIAL ONE (13:03)
[2023-01-09] MEDS ORDERED: HYDROMORPHONE HCL 2 MG/ML inj ONE (13:50)
[2023-01-09 16:05] VITALS: TEMP 98.4
[2023-01-09 16:07] VITALS: BP 194/174; O2SAT 99
== END 2023-01-09 14:38 | disposition short-term general hospital (02) ==
LOC: ER 11:55
DX: S72.002A Fracture of unspecified part of neck of left femur, initial encounter for closed fracture (principal); I10 Essential (primary) hypertension; Z88.2 Allergy status to sulfonamides; Z96.653 Presence of artificial knee joint, bilateral
CPT/HCPCS: 72170; 73502; 96375; 96374; 99284; J1170; J2405

== ENCOUNTER → 2023-12-13 | Emergency (ER) | payer OTHER, BC ==
--- NOTE | 2023-12-13 09:13 | EDPHYS ---
Physician Documentation [facility] Name: Kalli Gipson Age: 78 yrs Sex: Female : 1945 Arrival Date: 12/13/2023 Time: 08:37 Bed 19 Private MD: Perla Gutierrez ED Physician Felix Orr HPI: 12/13 09:09 This 78 yrs old Female presents to ER via Ambulatory with complaints of Arm Problem. ms3 09:09 78-year-old female with past medical history of hypertension and vertigo presents to [facility] the emergency department for left elbow tingling that has been ongoing for 1 week. Patient denies pain. Patient denies fevers or chills. Patient endorses nausea and vomiting that has subsequently resolved.. Historical: - Allergies: 08:42 Sulfa (Sulfonamide Antibiotics); mb9 - PMHx: 08:42 Hypertension; Vertigo; mb9 - PSHx: 08:42 bilateral knee replacement; mb9 08:44 knee SX x 2; L hip replacement; ll1 - Immunization history:: Adult Immunizations up to date. - Social history:: Smoking status: Patient denies any tobacco usage or history of. ROS: 09:09 Constitutional: Negative for fever, and chills. Neck: Negative for injury, pain, and ms3 swelling, Cardiovascular: Negative for chest pain, and palpitations. Respiratory: Negative for shortness of breath, cough, wheezing, and pleuritic chest pain, Abdomen/GI: Negative for abdominal pain, nausea, vomiting, diarrhea, and constipation, 09:09 MS/extremity: Positive for Paresthesias left arm, Exam: 09:09 Constitutional: This is a well developed, well nourished patient who is awake, alert, ms3 and in no acute distress. Head/Face: Normocephalic, atraumatic. Neck: Trachea midline, no cervical lymphadenopathy. Supple, full range of motion without nuchal rigidity, or vertebral point tenderness. No Meningismus. Chest/axilla: Normal chest wall appearance and motion. Nontender with no deformity. Cardiovascular: Regular rate and rhythm with a normal S1 and S2. No gallops, murmurs, or rubs. Normal PMI, no JVD. No pulse deficits. Respiratory: Lungs have equal breath sounds bilaterally, clear to auscultation and percussion. No rales, rhonchi or wheezes noted. No increased work of breathing, no retractions or nasal flaring. Abdomen/GI: Soft, non-tender, with normal bowel sounds. No distension or tympany. No guarding or rebound. No evidence of tenderness throughout. Back: No spinal tenderness. No costovertebral tenderness. Full range of motion. Skin: Warm, dry with normal turgor. Normal color with no rashes, no lesions, and no evidence of cellulitis. MS/ Extremity: Pulses equal, no cyanosis. Neurovascular intact. Full, normal range of motion. Vital Signs: 08:45 BP 137 / 108; Pulse 99; Resp 17; Temp 97; Pulse Ox 97% on R/A; Weight 65.77 kg; Height ll1 5 ft. 4 in. ; Pain 0/10; 09:12 BP 132 / 98; Pulse 80; Resp 18; Pulse Ox 100% ; Pain 0/10; mb9 08:45 Body Mass Index 24.89 (65.77 kg, 162.56 cm) ll1 08:45 Pain Scale: Adult ll1 09:12 Pain Scale: Adult mb9 MDM: 09:09 Patient medically screened. ms3 09:09 Differential diagnosis: Paresthesias versus peripheral neuropathy versus viral illness. ms3 Data reviewed: vital signs, nurses notes, and as a result, I will discharge patient. Counseling: I had a detailed discussion with the patient and/or guardian regarding the historical points, exam findings, and any diagnostic results supporting the discharge/admit diagnosis, the need for outpatient follow up, to return to the emergency department if symptoms worsen or persist or if there are any questions or concerns that arise at home. Special discussion: I discussed with the patient/guardian in detail that at this point there is no indication for admission to the hospital. It is understood, however, that if the symptoms persist or worsen the patient needs to return immediately for re-evaluation. ED course: Discussed physical exam findings with patient. Offered x-rays and lab work and patient declines. Patient to follow-up with primary care physician 2 to 3 days. Patient understands and agrees with plan. All questions were answered. Return precautions discussed include worsening symptoms, or any other concerns. Administered Medications: No medications were administered Disposition Summary: 12/13/23 09:12 Discharge Ordered Notes: Location: Home ms3 Condition: Stable ms3 Diagnosis - Paresthesia of skin ms3 - Nausea ms3 Followup: ms3 - With: Perla Gutierrez - When: 2 - 3 days - Reason: Recheck today's complaints Discharge Instructions: - Discharge Summary Sheet ms3 - Paresthesia ms3 - Peripheral Neuropathy ms3 Forms: - Medication Reconciliation Form ms3 - Thank You Letter ms3 - Antibiotic Education ms3 - Prescription Opioid Use ms3 - Patient Portal Instructions ms3 - Leadership Thank You Letter ms3 Prescriptions: - ondansetron 4 mg Oral Tablet,disintegrating - take 1 tablet ORAL route every 8 hours; 15 tablet; Refills: 0, Product ms3 Selection Permitted Signatures: Vinnie Garcia RN RN ll1 Felix Orr DO DO ms3 Vida Valentin RN RN mb9
--- NOTE | 2023-12-13 09:13 | ER ---
Nurse's Notes [facility] Name: Kalli Gipson Age: 78 yrs Sex: Female : 1945 Arrival Date: 12/13/2023 Time: 08:37 Bed 19 Private MD: Perla Gutierrez Diagnosis: Paresthesia of skin;Nausea Presentation: 12/13 08:45 Chief complaint: Patient states: Noticed intermittent L arm tingling for 1 week. ll1 Started to have N/V on Tuesday after eating [place] food. No cough or fever. 2 nose bleeds this past week. Coronavirus screen: Client denies travel out of the [place] in the last 14 days. At this time, the client does not indicate any symptoms associated with coronavirus-19. Ebola Screen: Patient denies travel to an Ebola-affected area in the 21 days before illness onset. Initial Sepsis Screen: Does the patient meet any 2 criteria? HR > 90 bpm. No. Patient's initial sepsis screen is negative. Does the patient have a suspected source of infection? No. Patient's initial sepsis screen is negative. Risk Assessment: Do you want to hurt yourself or someone else? Patient reports no desire to harm self or others. Onset of symptoms was December 06, 2023. 08:45 Method Of Arrival: Ambulatory ll1 08:45 Acuity: JOSUE 3 ll1 Historical: - Allergies: 08:42 Sulfa (Sulfonamide Antibiotics); mb9 - PMHx: 08:42 Hypertension; Vertigo; mb9 - PSHx: 08:42 bilateral knee replacement; mb9 08:44 knee SX x 2; L hip replacement; ll1 - Immunization history:: Adult Immunizations up to date. - Social history:: Smoking status: Patient denies any tobacco usage or history of. Screenin:41 [facility] ED Fall Risk Assessment (Adult) History of falling in the last 3 months, mb9 including since admission No falls in past 3 months (0 pts) Confusion or Disorientation No (0 pts) Intoxicated or Sedated No (0 pts) Impaired Gait No (0 pts) Mobility Assist Device Used No (0 pt) Altered Elimination No (0 pt) Score/Fall Risk Level 0 - 2 = Low Risk Oriented to surroundings, Maintained a safe environment, Educated pt \T\ family on fall prevention, incl call for assistance when getting out of bed. Abuse screen: Denies threats or abuse. Nutritional screening: No deficits noted. Tuberculosis screening: No symptoms or risk factors identified. Assessment: 08:44 General: Appears in no apparent distress. Behavior is calm, cooperative. Pain: Denies mb9 pain. Neuro: Chavez Agitation-Sedation Scale (RASS): 0 - Alert and Calm Level of Consciousness is awake, alert, obeys commands, Oriented to person, place, time, situation, Appropriate for age. Cardiovascular: Heart tones S1 S2 present Patient's skin is warm and dry. Respiratory: Airway is patent Respiratory effort is even, unlabored, Respiratory pattern is regular, symmetrical. GI: Abdomen is round non-distended, Bowel sounds present X 4 quads. Abd is soft and non tender X 4 quads. GI: Reports N/V after eating [place] on Tuesday/. : No signs and/or symptoms were reported regarding the genitourinary system. EENT: Reports nose bleed on Tuesday. No bleeding noted.. Derm: Skin is pink, warm \T\ dry. Musculoskeletal: Range of motion: intact in all extremities. Musculoskeletal: Reports since Left arm that is intermittent. Pt denies pain right now.. 09:12 Reassessment: No changes from previously documented assessment. Patient and/or family mb9 updated on plan of care and expected duration. Pain level reassessed. Patient is alert, oriented x 3, equal unlabored respirations, skin warm/dry/pink. Vital Signs: 08:45 BP 137 / 108; Pulse 99; Resp 17; Temp 97; Pulse Ox 97% on R/A; Weight 65.77 kg; Height ll1 5 ft. 4 in. ; Pain 0/10; 09:12 BP 132 / 98; Pulse 80; Resp 18; Pulse Ox 100% ; Pain 0/10; mb9 08:45 Body Mass Index 24.89 (65.77 kg, 162.56 cm) ll1 08:45 Pain Scale: Adult ll1 09:12 Pain Scale: Adult mb9 ED Course: 08:39 Patient arrived in ED. mr 08:39 Felix Orr DO is Attending Physician. ms3 08:39 Perla Gutierrez is Private Physician. mr 08:41 Vida Valentin RN is Primary Nurse. mb9 08:41 Arm band placed on. mb9 08:42 Placed in gown. Bed in low position. Call light in reach. Side rails up X 1. Client mb9 placed on continuous cardiac and pulse oximetry monitoring. NIBP monitoring applied. 08:47 Triage completed. ll1 08:50 No provider procedures requiring assistance completed. mb9 09:08 Patient did not have IV access during this emergency room visit. mb9 09:12 Perla Gutierrez is Referral Physician. ms3 Administered Medications: No medications were administered Medication: 08:42 VIS not applicable for this client. mb9 Outcome: 09:12 Discharge ordered by MD. ms3 09:17 Discharged to home ambulatory, mb9 09:17 Condition: stable 09:17 Discharge instructions given to patient, Instructed on discharge instructions, follow up and referral plans. Demonstrated understanding of instructions, follow-up care, medications, Prescriptions given X 1, 09:17 Patient left the ED. mb9 Signatures: Vida José, Reg Reg mr Vinnie Garcia RN RN ll1 Felix Orr DO DO ms3 Vida Valentin, RN RN mb9 Corrections: (The following items were deleted from the chart) 08:55 08:44 EENT: No signs and/or symptoms were reported regarding the EENT system. mb9 mb9 09:17 09:12 Pulse 80bpm; Resp 18bpm; Pulse Ox 100%; Pain 0/10, Adult; mb9 mb9
[2023-12-13 09:25] VITALS: BP 132/98; TEMP 97; O2SAT 100
== END ==
LOC: ER 08:37
DX: R20.2 Paresthesia of skin (principal); R11.0 Nausea; I10 Essential (primary) hypertension; Z88.2 Allergy status to sulfonamides